=== PATIENT | female | born 1995 | race Caucasian/White ===

== ENCOUNTER → 2020-06-05 12:02 | Outpatient (BNVA) | payer BC, SELFPAY | PROVIDERS: PCP Internal Medicine; Referring Provider Internal Medicine; Visit Provider Advanced Practice Midwife | DX: Z76.89 Persons encountering health services in other specified circumstances (principal) ==

== ENCOUNTER → 2020-07-03 10:01 | Outpatient (BNVA) | payer BC, SELFPAY | PROVIDERS: PCP Internal Medicine; Visit Provider Advanced Practice Midwife | DX: Z30.46 Encounter for surveillance of implantable subdermal contraceptive (principal) | CPT/HCPCS: 11982 ==

== ENCOUNTER 2020-07-09 10:01 | Outpatient (REF) | payer BC, SELFPAY ==
[2020-07-10 09:49] LABS: CT PCR NOT DETECTED (Not Detect.); NG PCR NOT DETECTED (Not Detect.)
[2020-07-15 16:42] LABS: HPV 16 RNA NOT DETECTED (NOT DETECTED); HPV mRNA E6/E7 rflx Detected (Not Detected)
== END 2020-07-09 10:02 | disposition home or self-care (01) ==
LOC: HO.LAB 10:01
PROVIDERS: PCP Internal Medicine; Visit Provider Advanced Practice Midwife
DX: Z01.419 Encounter for gynecological examination (general) (routine) without abnormal findings (principal); Z20.2 Contact with and (suspected) exposure to infections with a predominantly sexual mode of transmission
CPT/HCPCS: 87491; 87591; 87624; 87625; 88141; 88142

== ENCOUNTER 2020-11-11 13:24 | Outpatient (REF) | payer BC, SELFPAY | END 2020-11-11 13:25 | disposition home or self-care (01) | LOC: HO.LAB 13:24 | PROVIDERS: Visit Provider Internal Medicine | DX: Z20.822 Contact with and (suspected) exposure to COVID-19 (principal) | CPT/HCPCS: 36415; C9803; U0003; U0005 ==

== ENCOUNTER 2021-04-16 17:34 | Emergency (ER) | payer OTHER, BC, SELFPAY ==
[2021-04-16 17:46] VITALS: BP 126/80; PULSE 80
[2021-04-16 17:59] VITALS: BP 120/74; PULSE 140; RESP 16; O2SAT 98; BMI 27.3
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
[2021-04-16] MEDS: Cyclobenzaprine HCl 10 MG TABLET 5 MG PO (20:06)
[2021-04-16] MEDS: Ibuprofen 600 MG TABLET PO (20:06)
== END 2021-04-16 20:20 | disposition home or self-care (01) ==
PROVIDERS: Emergency Provider Emergency Medicine; PCP Internal Medicine
DX: Z04.1 Encounter for examination and observation following transport accident (principal); M54.6 Pain in thoracic spine
CPT/HCPCS: 99283

== ENCOUNTER 2022-04-19 14:01 | Outpatient (REF) | payer OTHER, SELFPAY ==
[2022-04-21 08:32] LABS: Follicle Stimulating Hormone 4.1 mIU/mL; Prolactin 13.1 ng/mL
== END 2022-04-19 14:02 | disposition home or self-care (01) ==
LOC: HO.LAB 14:01
PROVIDERS: PCP Internal Medicine; Visit Provider Advanced Practice Midwife
DX: Z01.419 Encounter for gynecological examination (general) (routine) without abnormal findings (principal); N92.1 Excessive and frequent menstruation with irregular cycle; R23.2 Flushing
CPT/HCPCS: 36415; 83001; 84146; 84443; 88142

== ENCOUNTER 2022-05-20 16:00 | Outpatient (REF) | payer OTHER, SELFPAY ==
[2022-05-21 06:05] LABS: CT PCR NOT DETECTED (Not Detect.); NG PCR NOT DETECTED (Not Detect.)
[2022-05-21 14:22] LABS: BV Int Neg Control Negative (Negative); BV Int Pos Control Positive (Positive)
== END 2022-05-20 16:01 | disposition home or self-care (01) ==
LOC: HO.LNP 16:00
PROVIDERS: Visit Provider Advanced Practice Midwife
DX: Z11.3 Encounter for screening for infections with a predominantly sexual mode of transmission (principal); Z20.2 Contact with and (suspected) exposure to infections with a predominantly sexual mode of transmission
CPT/HCPCS: 87480; 87491; 87510; 87591; 87660

== ENCOUNTER 2022-07-18 08:38 | Emergency (ER) | payer OTHER, SELFPAY ==
--- NOTE | ~2022-07-18 | XR_ITS ---
EXAMINATION: XR HAND, RIGHT CLINICAL INFORMATION: Right hand swelling. COMPARISON: None TECHNIQUE: PA, lateral, and oblique views of the right hand. FINDINGS: The bones and soft tissues are normal. No fracture. Alignment is anatomic. Joint spaces are maintained. No erosions or soft tissue calcifications. XR/XR hand RT 2V IMPRESSION: Unremarkable right hand.
[2022-07-18 09:25] VITALS: BP 125/75; PULSE 80; RESP 16; TEMP 36.3; O2SAT 98; BMI 29.9
--- NOTE | 2022-07-18 11:00 | ED_ITS ---
HPI - General Adult General Chief complaint: Extremity Problem Stated complaint: R arm numbness/hand is cold Time Seen by Provider: 07/18/22 09:59 Source: patient Mode of arrival: ambulatory Limitations: no limitations History of Present Illness HPI narrative: 26-year-old female with no significant past medical history presents to the emergency department today, with her sister, with bilateral arm numbness (rt > lt) and sensation of a cold right hand. She reports she woke this morning feeling decreased sensation in bilateral arms with right greater than left and denies any trauma to her upper extremities. She denies any upper extremity pain or difficulty in range of motion. 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 She denies any use oral control. She denies any fever, chills, chest pain, shortness of breath, diarrhea, constipation. She denies any recent illness or known sick contacts. Onset (ago): hour(s) Location: left, right and upper extremity Radiation: non-radiation Associated symptoms: denies other symptoms Treatments prior to arrival: none Related Data Previous Rx's Medication Instructions Recorded fluconazole 150 mg tablet 150 mg PO ONCE PRN personal 1 day 05/20/22 (Diflucan) #2 tabs metronidazole 0.75 % (37.5 mg/5 1 appful vaginal BEDTIME 5 days 06/09/22 gram) vaginal gel #70 grams Allergies Allergy/AdvReac Type Severity Reaction Status Date / Time No Known Allergies Allergy Verified 05/20/22 15:50 Review of Systems Review of Systems: Yes all other systems are reviewed and are negative Constitutional: Constitutional: Reports no additional constitutional compla ints, Denies chills, Denies fatigue, Denies fever(s) and Denies headache(s) Eyes: Eyes: Reports no additional eye complaints and Denies change in vision ENT: Reports system reviewed and no additional complaints, except as documented, Reports Normal hearing present, Denies headache(s), Denies nasal congestion, Denies disequilibrium and Denies sore throat Cardiovascular: Cardiovascular: Reports no additional cardiovascular complaints, Denies chest pain, Denies Epigastric Pain and Denies dyspnea Respiratory: Respiratory: Reports no additional respiratory complaints, Denies chest congestion, Denies cough and Denies dyspnea Gastrointestinal: Gastrointestinal: Reports no additional gastrointestinal complaints, Denies abdominal pain and Denies change in stool character Genitourinary: Genitourinary: Reports no additional female genitourinary complaints Musculoskeletal: Musculoskeletal: Reports no additional musculoskeletal complaints, Denies deformity, Reports numbness and Reports tingling Integumentary/Breasts: Skin/Breast: Reports system reviewed and no additional complaints, except as docu, Denies lesions, Denies erythema, Denies rash and Denies sores Neurologic: Reports system reviewed and no additional complaints, except as documented, Reports Normal hearing present, Denies headache(s), Reports numbness, Reports tingling, Reports paresthesias and Denies disequilibrium Psychiatric: Psychiatric: Reports no additional psychiatric complaints, Denies anxiety and Denies depression Endocrine: Endocrine: Reports no additional endocrine complaints and Denies fatigue PMFSH Past Medical History Attestation statement: The following information was validated with the patient. Source: old records reviewed and obtained from family Surgical History Hx of hernia repair Family History Family History Mother Ovarian cancer Other No history of cancer Social History Social History Alcohol intake: never Sexual orientation: Straight/Heterosexual Gender identity: Female Physical Exam ED Vital Signs: Vital Signs - 24 hr 07/18/22 09:25 Temperature 97.3 F Pulse Rate 80 Respiratory Rate 16 Blood Pressure 125/75 Pulse Oximetry 98 Oxygen Delivery Method Room Air BMI result Body Mass Index 29.9 Const General: cooperative, no acute distress, alert and awake Nutritional Appearance: well nourished Orientation/consciousness: patient oriented x3 Limitations: no limitations HENID Head: Yes normal to inspection and Yes atraumatic Ears: hearing grossly normal bilaterally and external ears normal General nose exam: Normal external nose present Face and sinus: Yes normal facial exam Mouth: Normal oral and palatal mucosa present Eyes General: appearance normal, both eyes and all related structures Alignment and Position: alignment normal Periorbital: periorbital findings normal Eyelids: Yes eyelids normal Conjunctivae: conjunctivae normal Sclerae: sclerae normal Pupils: Equal, round and reactive pupils present EOM: EOMs intact bilaterally Neck Neck: Yes normal visual inspection and Yes full ROM Chest Chest palpation & inspection: normal inspection of the chest Resp Effort & Inspection: normal respiratory effort and able to speak in complete sentences Auscultation: clear to auscultation bilaterally Cardio Rate: regular rate Rhythm: regular rhythm Skin General skin exam: no rashes or lesions noted Neuro General: patient oriented x3, gait normal, moves all extremities and Normal light touch and pain sensation (bilateral upper extremities) Cranial nerves: Yes Equal, round and reactive pupils present and Yes Normal hearing present Cognition (Neuro): normal cognition Gait exam (Neuro): Normal gait present Motor exam (neuro): 5/5 motor strength present throughout Sensory Exam: Normal double simultaneous stimulation for sensation Extrem General: Yes normal to inspection, Yes full ROM, Yes capillary refill normal and Yes normal gait Right upper extremity: normal to inspection, full ROM and normal capillary refill; no cyanosis and no edema Left upper extremity: normal to inspection, full ROM and normal capillary refill; no cyanosis and no edema Psych Appearance: grossly normal Mental Status: mental status grossly normal Speech and movement: Normal speech and movement present Affect: normal affect Attitude: cooperative Thought process: Normal thought process present Thought content: Normal thought content present Insight: Good insight present (Psych) Judgement: Good judgement present (Psych) Medical Decision Making MDM Narrative Medical decision making narrative: 26-year-old female presented to the emergency department bilateral arm weakness. 2+ radial and ulnar pulses. He moves upper extremities symmetrically with good strength. Postive Phalen's test with worsening of paresthesia. Negative Tinel sign. Physical exam discussed with patient with no unanswered questions. Low suspicion for thrombosis or infection based on history and exam. Recommended to use [id number] NSAIDs such as ibuprofen or naproxen as directed on packaging. Recommended to wear wrist splint during the day and at night for comfort. Educated to return to the emergency department for increasing numbness, changes in gait, changes in vision, or any other emergent symptom that may concern you. Recommended to follow-up with orthopedics or hand specialist. Follow-up with your primary care provider for further management. Discharge Plan Discharge Clinical Impression: Numbness Patient Disposition: Home, Self-Care Instructions: Paresthesia (ED) Additional Instructions: Recommended to use [id number] NSAIDs such as ibuprofen or naproxen as directed on packaging. Wear wrist splint during the day and at night for comfort. Educated to return to the emergency department for increasing numbness, changes in gait, changes in vision, or any other emergent symptom that may concern you. Recommended to follow-up with orthopedics or hand specialty. Follow-up with your primary care provider. Prescriptions: No Action metronidazole 0.75 % (37.5mg/5 gram) gel 1 appful vaginal BEDTIME 5 Days Qty: 70 0RF fluconazole [Diflucan] 150 mg tablet 150 mg PO ONCE PRN (Reason: personal) 1 Days Qty: 2 1RF Rx Instructions: may repeat dose in one week if symptoms do not resolve Referrals: Micky Cervantes MD [Primary Care Provider] - Stand Alone Forms: Work/School Release Interventions: ED Discharge Assessment Last Done: 07/18/22 11:01 Discharge Date/Time: 07/18/22 11:04
== END 2022-07-18 11:04 | disposition home or self-care (01) ==
PROVIDERS: Emergency Provider Emergency Medicine; PCP Internal Medicine
DX: R20.0 Anesthesia of skin (principal)
CPT/HCPCS: 73120; 99283

== ENCOUNTER 2022-07-22 14:30 | Outpatient (REF) | payer OTHER, SELFPAY ==
[2022-07-23 11:57] LABS: BV Int Neg Control Negative (Negative); BV Int Pos Control Positive (Positive)
== END 2022-07-22 14:31 | disposition home or self-care (01) ==
LOC: HO.LNP 14:30
PROVIDERS: Visit Provider Internal Medicine
DX: N89.8 Other specified noninflammatory disorders of vagina (principal)
CPT/HCPCS: 87480; 87510; 87660

== ENCOUNTER 2023-05-12 15:34 | Outpatient (REF) | payer OTHER, SELFPAY ==
[2023-05-12 18:49] LABS: CT PCR NOT DETECTED (Not Detect.); NG PCR NOT DETECTED (Not Detect.)
== END 2023-05-12 15:35 | disposition home or self-care (01) ==
LOC: HO.LNP 15:34
PROVIDERS: PCP Internal Medicine; Visit Provider Advanced Practice Midwife
DX: Z20.2 Contact with and (suspected) exposure to infections with a predominantly sexual mode of transmission (principal)
CPT/HCPCS: 0353U

== ENCOUNTER 2023-05-12 15:34 | Outpatient (AMB) | payer OTHER, SELFPAY ==
[2023-05-12 15:51] VITALS: BP 112/72; BMI 29.5
--- NOTE | 2023-05-12 15:51 | A.OFFVIS_ITS ---
Intake Vital Signs 05/12/23 15:51 Height 5 ft Weight 151 lb BMI 29.5 BP 112/72 Intake Visit Reasons: Annual Intake Note: The patient agreed to use of a medical logistics specialist during this encounter. Scribed for BHARTI Hauser by Galina Erazo medical logistics specialist, on 05/12/2023 at 4:27 pm EST. Digital Project Coordinator Required: No Information Interpreted: non-clinical & clinical Advertisement Distributor: Advertisement Distributor Present (Mey) Allergies No Known Allergies Allergy (Verified 05/12/23 15:55) Is last menstrual period known: Yes Last menstrual period: 04/19/23 Post menopausal: No HPI HPI Comments History of Present Illness Details She is a premenopausal woman presenting for annual exam. Doing well with no member of congress concerns. She admits to eating healthy and tries to stay active with exercise. Currently sexually active. Using condoms, not interested in BC. Admits vaginal itching and irritation in the past but used Vagisil cream which helped it resolve. STD screening offered; she declines. Denies family hx of breast and ovarian cancer. Last pap smear 04/21/22. PFSH Surgical History Hx of hernia repair Family History Mother Ovarian cancer Other No history of cancer Social History Alcohol intake: current Alcohol intake frequency: holidays/special occasions only Patient Tobacco Use Status: Never used Tobacco e-Cigarette/Vaping Use: Never Used Substance Use Type: Marijuana service: No Current occupational exposures/hazards: No Sexual orientation: Straight/Heterosexual Gender identity: Female Cognitive needs: No Hearing needs: No Vision needs: No Female Reproductive History Menstrual Age of Menarche: 12 Duration of menses: 3-5 days Date of last menstrual period: 04/19/23 control method: none and condoms Total pregnancies: 0 Date of last pap smear: 04/21/22 (negative) History of abnormal pap smear: Yes (2020 +HPV) Physical Exam Vital Signs: Last Vital Signs BP 112/72 05/12/23 15:51 BMI result Body Mass Index 29.5 Const General: cooperative, healthy appearing, no acute distress, well developed and alert Orientation/consciousness: patient oriented x3 HEENT Head: Yes normal to inspection Eyes General: appearance normal, both eyes and all related structures Neck Neck: Yes normal visual inspection Thyroid: Thyroid normal Chest Chest palpation & inspection: normal inspection of the chest Breast/axilla inspection: normal inspection of the breasts (no puckering, dimpling, peau de orange, retraction, discharge, masses) Breast/axilla palpation: normal palpation of the breasts Resp Effort & Inspection: normal respiratory effort GI Inspection: Yes normal to inspection Palpation (GI): Soft to palpation (to palpation) Rectal Exam - Female: deferred General: Yes bladder normal to inspection External Female Exam: normal external appearance and normal appearance of the urethra Speculum Exam - Vagina: normal appearance of the vagina, normal palpation and normal vaginal discharge Speculum Exam - Cervix: normal appearance of the cervix and normal palpation Bimanual exam- vagina & uterus: normal palpation and normal palpation Bimanual Exam- Adnexa, other: normal adnexae and no masses Skin General skin exam: no rashes or lesions noted Neuro General: patient oriented x3 Cognition (Neuro): normal cognition Extrem General: Yes normal to inspection Psych Attitude: cooperative Thought process: Normal thought process present Assessment & Plan Assessment & Plan (1) Encounter for well woman exam: Code(s): Z01.419 - Encounter for gynecological examination (general) (routine) without abnormal findings Plan: Discussed: Current recommendations for pap smears per ASCCP guidelines. Breast awareness and periodic self breast exams. Encouraged yearly mammograms. Maintaining a healthy lifestyle including a well balanced diet including Calcium and Vitamin D and routine exercise. All of her questions and concerns were addressed to the best of my ability. RTO in 1 year for AG. (2) Potential exposure to STD: Code(s): Z20.2 - Contact with and (suspected) exposure to infections with a predominantly sexual mode of transmission Plan: GC/CT panel done today. Await results and treat accordingly. Orders: Orders CT NG by PCR Today Z01.419 - Encounter for gynecological examination (general) (routine) without abnormal findings Coding Level of Care Code Est Pt Prev Care 18-39y(14614) Diagnoses Encounter for well woman exam Z01.419 Potential exposure to STD Z20.2
== END 2023-05-12 16:21 | disposition home or self-care (01) ==
PROVIDERS: PCP Internal Medicine; Visit Provider Advanced Practice Midwife
DX: Z01.419 Encounter for gynecological examination (general) (routine) without abnormal findings (principal); Z20.2 Contact with and (suspected) exposure to infections with a predominantly sexual mode of transmission
CPT/HCPCS: 99395

== ENCOUNTER 2023-10-18 09:12 | Outpatient (REF) | payer OTHER, SELFPAY ==
[2023-10-19 06:11] LABS: CT PCR DETECTED (Not Detect.); NG PCR NOT DETECTED (Not Detect.)
[2023-10-19 15:43] LABS: BV Int Neg Control Negative (Negative); BV Int Pos Control Positive (Positive)
== END 2023-10-18 09:13 | disposition home or self-care (01) ==
LOC: HO.LAB 09:12
PROVIDERS: PCP Internal Medicine; Visit Provider Advanced Practice Midwife
DX: Z20.2 Contact with and (suspected) exposure to infections with a predominantly sexual mode of transmission (principal); N39.0 Urinary tract infection, site not specified; N94.10 Unspecified dyspareunia
CPT/HCPCS: 0353U; 87480; 87510; 87660

== ENCOUNTER 2023-10-18 09:12 | Outpatient (AMB) | payer OTHER, SELFPAY ==
--- NOTE | 2023-10-18 09:21 | A.OFFVIS_ITS ---
Intake Vital Signs 10/18/23 09:22 Height 5 ft Weight 151 lb BMI 29.5 BP 122/70 Intake Visit Reasons: pain after intercourse Bunch Trimmer Mold Required: No Information Interpreted: clinical only Awning Frame Maker: Awning Frame Maker Present Allergies No Known Allergies Allergy (Verified 10/18/23 09:22) Medication List - Last Reconciled 10/18/23 by Vicky Hanks CNM ibuprofen 400 mg PO ONCE Is last menstrual period known: Yes Last menstrual period: 09/22/23 Do you need a note to return to daycare/school/sports/work: No HPI pain after intercourse HPI Details And is here because 4 days ago she experienced I really bad strong pain and severe cramping after intercourse when she had just finished and she broke out in a sweat and started feeling faint faint and had chills and lots of cramping she has frequent UTIs and often she just goes to [facility] and they treat her with small pack of about 8 (question 6 pills of antibiotic). She has been told that sometimes she needs to pee more often and that would help prevent UTIs. She normally sees Caroline Chi up but 501 she uses condoms for control if she got for from 1 of the occasions when they do not use condoms she would have a baby. PFSH Surgical History Hx of hernia repair Family History Mother Ovarian cancer Other No history of cancer Social History Alcohol intake: current Alcohol intake frequency: holidays/special occasions only Patient Tobacco Use Status: Never used Tobacco e-Cigarette/Vaping Use: Never Used Substance Use Type: Marijuana service: No Current occupational exposures/hazards: No Sexual orientation: Straight/Heterosexual Gender identity: Female Cognitive needs: No Hearing needs: No Vision needs: No Female Reproductive History Menstrual Age of Menarche: 12 Duration of menses: 6-7 days Date of last menstrual period: 09/22/23 control method: condoms Total pregnancies: 0 Date of last pap smear: 04/21/22 (negative,previous pap neg hpv +) Physical Exam Vital Signs: Last Vital Signs BP 122/70 10/18/23 09:22 BMI result Body Mass Index 29.5 Other: Vagina pink and moist cervix nulliparous pink smooth normal appearing scant white discharge. Cervix and uterus are midposition bladder does feel ever so slightly full and that is where she identifies the cramping that she had and that she has on palpation. Adnexa nontender good tone with Kegel External Female Exam: normal external appearance Speculum Exam - Vagina: normal appearance of the vagina and normal vaginal discharge Speculum Exam - Cervix: normal appearance of the cervix Bimanual exam- vagina & uterus: normal bimanual exam, uterine size normal, consistency normal, uterine mobility normal, uterine shape normal and non-tender Bimanual Exam- Adnexa, other: normal adnexae, no masses and No adnexal tenderness Assessment & Plan Assessment & Plan (1) Frequent UTI: Code(s): N39.0 - Urinary tract infection, site not specified (2) Dyspareunia in female: Comment: 4d ago, vagal response.... Code(s): N94.10 - Unspecified dyspareunia Plan Cultures done and will send patient to lab for a clean-catch UA DISTANCE EDUCATION COORDINATOR. Discussed the possibility of incomplete emptying of her bladder as well as irritation to use the urethra during intercourse contributing to both the cramping and her frequent UTIs. Also discussed that her description of what happened sounds very likely that she had some vagal stimulation from the severe cramping and it can happen from cervical stimulation or any other internal pain and cramping with internal organs including bladder or intestines. And described other situations in life when it occurs. Will send patient for a clean-catch UA C&S in the lab she is on the portal and so she may check on the weekend but if she wants to know if there is anything going on sooner she can call for Monday she does not really thinks she has a UTI at the moment but this will serve at least as of test of cure as well. Discussed complete bladder emptying as much as possible and how it sets as up for urinary tract infections as well Orders: Orders Urine Culture Today N39.0 - Urinary tract infection, site not specified, N94.10 - Unspecified dyspareunia Coding Level of Care Code Est Pt Level 3 (07337) Diagnoses Frequent UTI N39.0 Dyspareunia in female N94.10
[2023-10-18 09:22] VITALS: BP 122/70; BMI 29.5
== END 2023-10-18 10:06 | disposition home or self-care (01) ==
LOC: HO.HWSM 09:12
PROVIDERS: PCP Internal Medicine; Visit Provider Advanced Practice Midwife
DX: N39.0 Urinary tract infection, site not specified (principal); N94.10 Unspecified dyspareunia
CPT/HCPCS: 99213

== ENCOUNTER 2023-10-18 10:09 | Outpatient (REF) | payer OTHER, SELFPAY | END 2023-10-18 10:10 | disposition home or self-care (01) | LOC: HO.HHCL 10:09 | PROVIDERS: Visit Provider Advanced Practice Midwife | DX: N39.0 Urinary tract infection, site not specified (principal); N94.10 Unspecified dyspareunia | CPT/HCPCS: 87086 ==

== ENCOUNTER 2024-03-01 14:47 | Outpatient (AMB) | payer OTHER, SELFPAY ==
[2024-03-01 15:14] VITALS: BP 106/68; BMI 28.9
--- NOTE | 2024-03-01 15:14 | A.OFFVIS_ITS ---
Vital Signs 03/01/24 15:14 Height 5 ft Weight 148 lb BMI 28.9 BP 106/68 Intake Visit Reasons: [facility] Attendant Required: No Veterinary Hospital Attendant Services: Veterinary Hospital Attendant Present Information Interpreted: clinical only Manager Process Excellence: Manager Process Excellence Present Allergies No Known Allergies Allergy (Verified 03/01/24 15:15) Medication List - Last Reconciled 03/01/24 by Vicky Hanks CNM ibuprofen 400 mg PO ONCE Is last menstrual period known: Yes Last menstrual period: 02/20/24 Do you need a note to return to daycare/school/sports/work: No HPI HPI [place]: Details: Patient is here for test of cure for chlamydia that she had diagnosed at the 10/18/2023 visit she and her partner took the medicine and they waited a while before having unprotected sex she has not worried about other STDs and declines blood work for HIV or hepatitis-B or C syphilis today. She could not get in for the test of cure visit sooner so she is here today she has not having any other issues though she just shaved the other day and feels like she might have a rash where she shaved in her groin. PFSH Surgical History Hx of hernia repair Family History Mother Ovarian cancer Other No history of cancer Social History Alcohol intake: current Alcohol intake frequency: holidays/special occasions only Patient Tobacco Use Status: Never used Tobacco e-Cigarette/Vaping Use: Never Used Substance Use Type: Marijuana service: No Current occupational exposures/hazards: No Sexual orientation: Straight/Heterosexual Gender identity: Female Cognitive needs: No Hearing needs: No Vision needs: No Female Reproductive History Menstrual Age of Menarche: 12 Date of last menstrual period: 02/20/24 control method: none Total pregnancies: 0 Date of last pap smear: 04/21/22 (negative) Physical Exam Vital Signs: Last Vital Signs BP 106/68 03/01/24 15:14 BMI result Body Mass Index 28.9 Other: External vulva consistent with external tinea and exposure to moisture as in wearing bathing suit for long periods of time. Vagina pink and moist cervix nulliparous pink smooth moist with normal appearing discharge cultures taken for test of cure etc. Results Reviewed Results Reviewed: Name: Alba Zurita Age/Sex: 27/F : 1995 Unit#: [id number] Attend Dr: LatonyaVicky JHA Re10/18/23 Status: DEP REF Location: .LAB Disch: SPEC : [id number] COURTNEY: 10/18/23-UNK STATUS: COMP REQ : [id number] RECD: 10/18/[address]: LatonyaVicky JHA COMP: 10/19/23 ENTERED: 10/18/[address]: Micky Cervantes MD ORDERED: CT NG by PCR QUERIES: CT NG Source: Vaginal Test Result Flag Reference CT PCR DETECTED A Not Detect. Detected results may be observed after successful antibiotic treatment due to target nucleic acids from residual non-viable chlamydia. As with many diagnostic tests, results from the Xpert CT/NG assay should be interpreted in conjunction with other laboratory and clinical data available to the clinician. Xpert CT/NG performance has not been evaluated in patients less than 14 years of age. The assay should not be used for the evaluation of suspected sexual abuse or for other medico-legal indications. Additional testing is recommended in any circumstance when false positive or false negative results could lead to adverse medical, social or psychological consequences. These results must be reported by the ordering clinician or clinical facility to the [facility] as required by state law. NG PCR NOT DETECTED Not Detect. A not detected test result does not exclude the possibility of infection because test results can be affected by improper specimen collection, concurrent antibiotic therapy, or the number of organisms in the specimen which may be below the sensitivity of the test. As with many diagnostic tests, results from the Xpert CT/NG assay should be interpreted in conjunction with other laboratory and clinical data available to the clinician. Xpert CT/NG performance has not been evaluated in patients less than 14 years of age. The assay should not be used for the evaluation of suspected sexual abuse or for other medico-legal indications. Additional testing is recommended in any circumstance when false positive or false negative results could lead to adverse medical, social or psychological consequences. END OF REPORT Assessment & Plan Assessment & Plan (1) Chlamydia infection: Comment: Needs Rx and partner Rx, consider risk of .../treated in September, test of cure 03/01/2024. Code(s): A74.9 - Chlamydial infection, unspecified Category: Medical (2) Yeast infection involving the vagina and surrounding area: Comment: Teaching done we will prescribe Monistat for p.r.n. use. Code(s): B37.31 - Acute candidiasis of vulva and vagina Category: Medical Plan Offered testing for STIs with blood work she declines. She is using condoms currently with her partner. She was hanging out with her friends and backyard pool in a bathing suit for long periods of time gather evening and is planning it again this weekend. Discussed allowing air to her vulva when it is possible. Offered prescription for Monistat in case she needs it. Test of cure done she has her annual exam set up.. Medications: New miconazole nitrate 2% (Miconazole-7) 1 appful vaginal BEDTIME 7 days 45 grams 1RF Coding Level of Care Code Est Pt Level 3 (63440) Diagnoses Chlamydia infection A74.9 Yeast infection involving the vagina and surrounding area B37.31
== END 2024-03-01 15:54 | disposition home or self-care (01) ==
PROVIDERS: PCP Internal Medicine; Visit Provider Advanced Practice Midwife
DX: A74.9 Chlamydial infection, unspecified (principal); B37.31 Acute candidiasis of vulva and vagina
CPT/HCPCS: 99213

== ENCOUNTER 2024-03-01 14:47 | Outpatient (REF) | payer OTHER, SELFPAY ==
[2024-03-05 06:03] LABS: CT PCR NOT DETECTED (Not Detect.); NG PCR NOT DETECTED (Not Detect.)
[2024-03-05 10:49] LABS: Bacterial Vaginosis PCR NEGATIVE (Negative); Candida Group PCR NOT DETECTED (Not Detect); Candida glab krusei PCR NOT DETECTED (Not Detect); Trichomonas vaginalis PCR NOT DETECTED (Not Detect)
== END 2024-03-01 14:48 | disposition home or self-care (01) ==
LOC: HO.LAB 14:47
PROVIDERS: PCP Internal Medicine; Visit Provider Advanced Practice Midwife
DX: N89.8 Other specified noninflammatory disorders of vagina (principal); Z20.2 Contact with and (suspected) exposure to infections with a predominantly sexual mode of transmission; A74.9 Chlamydial infection, unspecified; B37.31 Acute candidiasis of vulva and vagina
CPT/HCPCS: 0352U; 87491; 87591

== ENCOUNTER 2025-01-31 12:15 | Outpatient (AMB) | payer OTHER, SELFPAY ==
--- NOTE | 2025-01-31 12:21 | A.OFFPC_ITS ---
Vital Signs 01/31/25 12:36 Height 5 ft Weight 161 lb 2 oz BMI 31.5 BP 104/64 Blood Pressure Location Rt brachial Position Sitting Pulse 75 Pulse Source Pulse Oximeter Temp 98.0 F Temp Source Oral Pulse Oximetry (%) 100 Oxygen Delivery Method Room Air Intake Visit Reasons: weight and digestive system concerns Allergies No Known Allergies Allergy (Verified 01/31/25 12:21) Medication List - Last Reconciled 01/31/25 by Micky Cervantes MD No Known Home Meds Tobacco use date assessed: 01/31/25 Dental Screening Dental Screen Date: 01/31/25 Did you have a dental visit in the last 12 months?: No Did you have a dental problem in the last 6 months where you did not have access to dental care?: No Was dental information given to patient?: Patient has dentist HPI weight and digestive system concerns HPI Details History - The patient is a 29-year-old female pr esenting with a history of abdominal bloating and changes in bowel habits. - The patient reports experiencing bloat ing and alternating episodes of constipation and diarrhea for over three years. - She describes a sensation of bloating and constipation lasting up to three days, followed by diarrhea and non-solid stools. - While attempting a bowel movement, she experienced lightheadedness and a near fainting episode, attributed to straining. - No reported incidence of abdominal certified master safecracker mping or hemorrhoids. - There is reported exacerbation of symp toms with certain food items, particularly pork, rice, and dairy, leading to an increase in bloating. - The patient has tried various self-aundrea atment methods, including probiotics and olqt-eto-zvufweg castor oil, without relief. - No presence of blood in stools, fever, or vomiting. Medications: - Probiotics for bowel regulation, not s pecified Social History: - Avoids certain foods (pork, rice, and dairy) due to worsening of symptoms Family History: - Mother has a history of a digestive is ameena requiring a colonoscopy for blockage Problem List - Abdominal bloating - Alternating constipation and diarrhea Patient Instructions - Begin taking the prescribed fiber supp lement as directed. MiraLax in full glass of water - Maintain a food diary, noting any wors ening symptoms and correlating them with food intake. - Educate yourself about irritable bowel syndrome (IBS). - Monitor for any changes and follow up after two to three weeks for reassessment. Review of Systems - General: No fever no chills - Neurological: No headaches no dizziness - Ear nose throat: No sore throat no hearing difficulty no ear pain - Cardiovascular: No syncope, no chest pain, no palpitations - Gastrointestinal: No nausea vomiting - Endocrine: No polyuria polydipsia no heat intolerance - Genitourinary: No dysuria , no blood in urine Physical Exam General: No acute distress HEENT: No acute findings Neck: Supple Respiratory system: Able to talk in full sentences, no audible wheeze Cardiovascular: S1-S2 regular in rate and rhythm Gastrointestinal: Abdomen is benign, no serious issues noted Extremities: No new findings COLLEGE HIRE: Alert awake oriented x3 motor sensory intact Skin: Normal turgor PFSH Surgical History Hx of hernia repair Family History Mother Ovarian cancer Other No history of cancer Social History Alcohol intake: current Alcohol intake frequency: holidays/special occasions only Patient Tobacco Use Status: Never used Tobacco e-Cigarette/Vaping Use: Never Used Substance Use Type: Marijuana service: No Current occupational exposures/hazards: No Sexual orientation: Straight/Heterosexual Gender identity: Female Cognitive needs: No Hearing needs: No Vision needs: No Female Reproductive History Menstrual Age of Menarche: 12 Questionnaire PHQ-9 Over the last 2 weeks, how often have you been bothered by any of the following problems? 1. Little interest or pleasure in doing things: not at all 2. Feeling down, depressed, or hopeless: several days 3. Trouble falling or staying asleep, or sleeping too much: several days 4. Feeling tired or having little energy: nearly every day 5. Poor appetite or overeating: not at all 6. Feeling bad about yourself - or that you are a failure or have let yourself or your family down: not at all 7. Trouble concentrating on things, such as reading the newspaper or watching television: nearly every day 8. Moving or speaking so slowly that other people could have noticed. Or the opposite - being so fidgety or restless that you have been moving around a lot more than usual: more than half the days 9. Thoughts that you would be better off or of hurting yourself in some way: not at all Total score: 10 Depression Screening Interpretation: Positive Depression Screening Follow-up: Community Mental Health Worker F/U and Follow-up Visit Requested Depression Screening Done: Yes 22266 - PHQ-9 Billing: Yes Source: Developed by Drs. Yadiel Hill, Debbie Carmona, Mitch Stevenson and colleagues, with an educational karen from [employer]. Thrive Questionnaire Date Thrive assessed: 01/31/25 I am a: Patient What is your living situation today?: I have a steady place to live Within the past 12 months, did the food you bought not last and you didn't have the money to get more?: Sometimes True Within the past 12 months, did you worry whether your food would run out before you got money to buy more?: Sometimes True Do you have trouble paying for medicines?: I choose not to answer this question Do you have trouble getting transportation to medical appointments?: No Do you have trouble paying your heating and electricity bill?: No Do you have trouble taking care of your child, family member or friend?: No Do you have trouble with day-to-day activities such as bathing, preparing meals, shopping, managing finances, etc.?: No Are you currently unemployed and looking for a job?: No Are you interested in more education?: No Please select the resources that you would like help with: None Currently or been in a relationship where the following occur: No concerns reported THRIVE Score: 2 AUDIT C Alcohol Use Questionnaire (AUDIT-C) 1. How often do you have a drink containing alcohol?: Monthly or less 2. How many drinks containing alcohol do you have on a typical day when you are drinking?: 1 or 2 3. How often do you have six or more drinks on one occasion?: Never Total Score: 1 ERINN-7 AMB Questionnaire ERINN-7 Date ERNIN - 7 assessed: 01/31/25 Feeling nervous, anxious, or on edge: 2 = More than half the days Not being able to stop or control worryin = Not at all Worrying too much about different things: 2 = More than half the days Trouble relaxin = More than half the days Being so restless that it is hard to sit still: 0 = Not at all Becoming easily annoyed or irritable: 2 = More than half the days Feeling afraid as if something awful might happen: 0 = Not at all Total ERINN-7 score (0-4 normal; 5-9 mild; 10-14 moderate; 15-21 severe): 8 Source: Developed by Drs. Yadiel Hill, Debbie Carmona, Mitch Stevenson and colleagues, with an educational karen from [employer]. ERINN-7 Assessment Billing ERINN-7 Assessment Tool: ERINN-7 Assessment 07607 Physical exam (Primary Care) Vital Signs: Last Vital Signs Temp 98.0 F 01/31/25 12:36 Pulse 75 01/31/25 12:36 BP 104/64 01/31/25 12:36 Pulse Ox 100 01/31/25 12:36 Oxygen Delivery Method Room Air 01/31/25 12:36 BMI result Body Mass Index 31.5 Tobacco/Smoking Status: Tobacco use Status Tobacco use date assessed 01/31/25 01/31/25 12:22 Patient Tobacco Use Status Never used Tobacco 01/31/25 12:22 e-Cigarette/Vaping Use Never Used 01/31/25 12:22 PHQ-9: PHQ-9 Score PHQ-9: Total score 10 01/31/25 12:54 Depression Screening Interpretation: Positive Depression Screening Follow-up: Community Mental Health Worker F/U and Follow-up Visit Requested Thrive Assessment: Date of Thrive Assessment Date Thrive assessed 01/31/25 01/31/25 12:22 Currently or been in a relationship where the following occur: No concerns reported Coding Level of Care Code Est Pt Level 3 (10423) Diagnoses Constipation by delayed colonic transit K59.01 Abdominal bloating R14.0 Positive depression screening Z13.31 Additional Codes ERINN-7 Assessment Billing - ERINN-7 Assessment Tool: ERINN-7 Assessment 36388 ([id number]) PHQ-9 - 04196 - PHQ-9 Billing: Yes ([id number]) Assessment & Plan Assessment & Plan (1) Constipation by delayed colonic transit: Code(s): K59.01 - Slow transit constipation Category: Medical (2) Abdominal bloating: Code(s): R14.0 - Abdominal distension (gaseous) Category: Medical (3) Positive depression screening: Code(s): Z13.31 - Encounter for screening for depression Category: Medical Plan History - The patient is a 29-year-old female presenting with a history of abdominal bloating and changes in bowel habits. - The patient reports experiencing bloating and alternating episodes of constipation and diarrhea for over three years. - She describes a sensation of bloating and constipation lasting up to three days, followed by diarrhea and non-solid stools. - While attempting a bowel movement, she experienced lightheadedness and a near fainting episode, attributed to straining. - No reported incidence of abdominal cramping or hemorrhoids. - There is reported exacerbation of symptoms with certain food items, particularly pork, rice, and dairy, leading to an increase in bloating. - The patient has tried various self-treatment methods, including probiotics and cxwm-nvo-xghqbdx castor oil, without relief. - No presence of blood in stools, fever, or vomiting. Medications: - Probiotics for bowel regulation, not specified Social History: - Avoids certain foods (pork, rice, and dairy) due to worsening of symptoms Family History: - Mother has a history of a digestive issue requiring a colonoscopy for blockage Problem List - Abdominal bloating - Alternating constipation and diarrhea Patient Instructions - Begin taking the prescribed fiber supplement as directed. MiraLax in full glass of water - Maintain a food diary, noting any worsening symptoms and correlating them with food intake. - Educate yourself about irritable bowel syndrome (IBS). - Monitor for any changes and follow up after two to three weeks for reassessment. Orders: Orders TSH reflex Free T4 Today K59.01 - Slow transit constipation, R14.0 - Abdominal distension (gaseous) Comprehensive [place]. Panel Fast Today K59.01 - Slow transit constipation, R14.0 - Abdominal distension (gaseous) Vitamin B12 Today K59.01 - Slow transit constipation, R14.0 - Abdominal distension (gaseous) Complete Blood Count Auto Diff Today K59.01 - Slow transit constipation, R14.0 - Abdominal distension (gaseous) Lipid Panel Today K59.01 - Slow transit constipation, R14.0 - Abdominal distension (gaseous) Vitamin D 25-OH (D2 and D3) Today K59.01 - Slow transit constipation, R14.0 - Abdominal distension (gaseous) Magnesium Today K59.01 - Slow transit constipation, R14.0 - Abdominal distension (gaseous) Medications: New polyethylene glycol 3350 (Miralax) 17 grams PO DAILY 1,530 grams 0RF 90 days
[2025-01-31 12:36] VITALS: BP 104/64; PULSE 75; TEMP 36.7; O2SAT 100; BMI 31.5
--- OUTSIDE RECORDS SUMMARY | 2025-01-31 12:57 | XMS_ITS | Clinical Summary ---
Author Organization [facility] Address [address] [place] [address] Care Team Providers Care Welder Fitter Apprentice Name Role Phone Unavailable Primary Care Provider Unavailabl e Source Comments PLEASE NOTE, if this patient is a minor, it may be UNLAWFUL to discuss sensitive information that is contained in these records (such as FAMILY PLANNING, MENTAL HEALTH or SUBSTANCE ABUSE) with the minor patient's parent or other person without the patient's specific authorization.[facility] Immunizations Immunization Administration Dates Next Due Moderna COVID-19 Vaccine, re d cap blue label, 12+ Primary Series 09/10/2021 Social History Tobacco Use Types Packs/Day Years Used Date Smoking Tobacco: Never Assessed Comments Unknown Sex and Gender Information Value Date Recorded Sex Assigned at Not on file Legal Sex Female 1:17 PM PST Gender Identity Not on file Sexual Orientation Not on file Plan of Treatment Health Maintenance Due Date Last Done Comments Anxiety Screening 1995 HPV Screening 1995 Hepatitis C Screening 1995 Pap + HPV 1995 Tobacco Screening 1995 HIV Screening 2012 Relationship Safety Screening/Counseling 2012 Hypertension Screening (#1) 11/27/2015 Imm-DTaP/Tdap/Td (1 - Tdap) 2016 Imm-Hepatitis B (1 of 3 - 19 + 3-dose series) 2016 Cervical Cancer Screening 2018 Pap Smear 2018 [id number] ( season) 2024 09/10/2021, 02/24/2021, 01/27/2021 Imm-Influenza (#1) 2024 06/14/2021 Alcohol and Drug Screen 08/21/2024 Depression Annual Screen 08/21/2024 Cervical Ablation/Cold-Knife Conization Discontinued Cervical Cryotherapy Discontinued Colposcopy Discontinued Endometrial Biopsy Discontinued Excision/Leep Discontinued HPV Genotyping Discontinued Vaginal Pap Discontinued Vulvoscopy Discontinued Insurance COVID19 [facility]
== END 2025-01-31 12:55 | disposition home or self-care (01) ==
LOC: HO.HMCC 12:15
PROVIDERS: PCP Internal Medicine; Visit Provider Internal Medicine
DX: K59.01 Slow transit constipation (principal); R14.0 Abdominal distension (gaseous); Z13.31 Encounter for screening for depression

== ENCOUNTER → 2025-01-31 12:15 | Outpatient (BNVA) | payer OTHER, SELFPAY | PROVIDERS: PCP Internal Medicine; Visit Provider Internal Medicine | DX: K59.01 Slow transit constipation (principal); R14.0 Abdominal distension (gaseous); R19.7 Diarrhea, unspecified | CPT/HCPCS: 96127 ==

== ENCOUNTER 2025-02-01 09:35 | Outpatient (REF) | payer OTHER, SELFPAY ==
[2025-02-01 11:14] LABS: MANUAL DIFF FLAG NO
[2025-02-01 11:25] LABS: Basophils Percent Auto 0.3 % (0-2); Eosinophils Percent Auto 0.7 % (0-4); Hematocrit 41.5 % (37.0-47.0); Hemoglobin 14.3 g/dl (12.0-16.0); Imm Gran Abs Auto 0.02 X10*3/uL (0.00-0.03); Imm Gran Pct Auto 0.3 % (0.0-0.4); Lymphocytes Absolute Auto 2.3 X10*3/uL (1.2-4.9); Lymphocytes Percent Auto 39.2 % (20-40); Mean Corpuscular HGB Conc 34.5 g/dl (31.0-35.0); Mean Platelet Volume 9.8 fL (9.4-12.3); Monocytes Absolute Auto 0.6 X10*3/uL (0.1-1.2); Monocytes Percent Auto 9.3 % (2-11); Neutrophils Percent Auto 50.2 % (45-73); Platelet Count 361 X10*3/uL (160-400); Red Blood Count 4.61 X10*6/uL (4.20-5.50); Red Cell Distribution Width 12.6 % (11.0-16.0); White Blood Count 5.9 X10*3/uL (4.8-10.8)
[2025-02-01 12:00] LABS: Alanine Aminotransferase 45 U/L (0-31); Albumin Level 4.5 g/dL (3.5-5.0); Alkaline Phosphatase 58 U/L (39-117); Anion Gap 12 (12-20); Aspartate Amino Transferase 34 U/L (5-31); Bilirubin Total 1.3 mg/dL (0.0-1.0); Blood Urea Nitrogen 6 mg/dL (9-16); Calcium 9.5 mg/dL (8.4-10.2); Carbon Dioxide 25 mmol/L (22-29); Chloride 107 mmol/L (96-108); Cholesterol 178 mg/dL (<200); Estimated Glomerular Filt Rate > 60; Glucose Fasting 98 mg/dL (60-99); HDL Cholesterol 43 mg/dL (>40); LDL Cholesterol Calculated 116 mg/dL (<100); Magnesium 1.9 mg/dL (1.6-2.6); Potassium 4.1 mmol/L (3.3-5.1); Sodium 140 mmol/L (135-145); TSH reflex Free T4 1.41 uIU/mL (0.32-4.0); Total Protein 7.3 g/dL (6.5-8.0); Triglycerides 97 mg/dL (<150)
[2025-02-01 12:09] LABS: Vitamin B12 580 pg/mL (200-900)
[2025-02-06 15:39] LABS: Vitamin D 25-OH, D2 <4 ng/mL; Vitamin D 25-OH, D3 23 ng/mL; Vitamin D 25-OH, Total 23 ng/mL (30-100)
== END 2025-02-01 09:36 | disposition home or self-care (01) ==
LOC: HO.HMGCLDS 09:35
PROVIDERS: PCP Internal Medicine; Visit Provider Internal Medicine
DX: K59.01 Slow transit constipation (principal); R14.0 Abdominal distension (gaseous)
CPT/HCPCS: 36415; 80053; 80061; 82306; 82607; 83735; 84443; 85025

== ENCOUNTER 2025-02-06 08:34 | Outpatient (AMB) | payer OTHER, SELFPAY ==
--- OUTSIDE RECORDS SUMMARY | 2025-02-06 08:51 | XMS_ITS | Clinical Summary ---
Author Organization [facility] Address [address] [place] [address] Care Team Providers Care Cogeneration Operator Name Role Phone Unavailable Primary Care Provider [...] Cervical Cancer Screening 2018 Pap Smear 2018 [id number] ( season) 2024 09/10/2021, 02/24/2021, 01/27/2021 Imm-Influenza (#1) 2024 06/14/2021 Alcohol and Drug Screen 08/21/2024 Depression Annual Screen 08/21/2024 Cervical Ablation/Cold-Knife Conization Discontinued Cervical Cryotherapy Discontinued Colposcopy Discontinued Endometrial Biopsy Discontinued Excision/Leep Discontinued HPV Genotyping Discontinued Vaginal Pap Discontinued Vulvoscopy Discontinued Insurance COVID19 [facility] [place] [id number]
--- NOTE | 2025-02-06 09:01 | A.OFFPC_ITS ---
Intake Visit Reasons: lab review Allergies No Known Allergies Allergy (Verified 01/31/25 12:21) Medication List - Last Reconciled 02/06/25 by Micky Cervantes MD polyethylene glycol 3350 (Miralax) 17 grams PO DAILY 90 days Tobacco use date assessed: 01/31/25 Dental Screening Dental Screen Date: 01/31/25 HPI lab review HPI Details History - The patient is a 29-year-old female pr esenting with bloating and constipation. - The symptoms have persisted despite st arting a fiber supplement. - The patient has been advised to see a senior telecommunications technician for further evaluation. - Laboratory results indicate elevated l iver enzymes, which may suggest fatty liver disease. - The patient has a history of dairy int olerance, which exacerbates bloating and constipation. - The patient has eliminated dairy from her diet, resulting in symptom improvement. how ever continue to have constipation, has never see gastro for proper diagnosis patient is aware that it can be IBS Problem List - Bloating - Constipation - Elevated liver enzymes - Possible fatty liver - Dairy intolerance Patient Instructions - Continue to avoid dairy products to pr event bloating and constipation. - Keep a food diary to identify any othe r potential food intolerances. - Follow up with a senior telecommunications technician as scheduled for further evaluation. Review of Systems - General: No fever no chills - Neurological: No headaches no dizziness - Ear nose throat: No sore throat no hearing difficulty no ear pain - PFSH Surgical History Hx of hernia repair Family History Mother Ovarian cancer Other No history of cancer Social History Alcohol intake: current Alcohol intake frequency: holidays/special occasions only Patient Tobacco Use Status: Never used Tobacco e-Cigarette/Vaping Use: Never Used Substance Use Type: Marijuana service: No Current occupational exposures/hazards: No Sexual orientation: Straight/Heterosexual Gender identity: Female Cognitive needs: No Hearing needs: No Vision needs: No Female Reproductive History Menstrual Age of Menarche: 12 Questionnaire Thrive Questionnaire Date Thrive assessed: 01/31/25 ERINN-7 AMB Questionnaire ERINN-7 Date ERINN - 7 assessed: 01/31/25 Source: Developed by Drs. Yadiel Hill, Debbie Carmona, Mitch Stevenson and colleagues, with an educational karen from [employer] Physical exam (Primary Care) Tobacco/Smoking Status: Tobacco use Status Tobacco use date assessed 01/31/25 02/06/25 09:01 Patient Tobacco Use Status Never used Tobacco 02/06/25 09:01 e-Cigarette/Vaping Use Never Used 02/06/25 09:01 Thrive Assessment: Date of Thrive Assessment Date Thrive assessed 01/31/25 02/06/25 09:01 Telehealth Telehealth Telehealth Platform: [place] [facility] [place] Location of provider rendering services: practice address Location of patient: address on file Patient Identification confirmed using: Name, : Yes Telehealth method: video Patient verbally consented to treatment: Yes Patient verbally consented to billing insurance company: Yes Patient informed of any privacy concerns related to visit: Yes Minutes spent on Phone/Video with Pt.: 13 Coding Level of Care Code Tele Est Pt Level 3 (64687) Diagnoses Abdominal bloating R14.0 Constipation by delayed colonic transit K59.01 Assessment & Plan Assessment & Plan (1) Abdominal bloating: Code(s): R14.0 - Abdominal distension (gaseous) Category: Medical (2) Constipation by delayed colonic transit: Code(s): K59.01 - Slow transit constipation Category: Medical Plan History - The patient is a 29-year-old female presenting with bloating and constipation. - The symptoms have persisted despite starting a fiber supplement. - The patient has been advised to see a senior telecommunications technician for further evaluation. - Laboratory results indicate elevated liver enzymes, which may suggest fatty liver disease. - The patient has a history of dairy intolerance, which exacerbates bloating and constipation. - The patient has eliminated dairy from her diet, resulting in symptom improvement. how ever continue to have constipation, has never see gastro for proper diagnosis patient is aware that it can be IBS Problem List - Bloating - Constipation - Elevated liver enzymes - Possible fatty liver - Dairy intolerance Patient Instructions - Continue to avoid dairy products to prevent bloating and constipation. - Keep a food diary to identify any other potential food intolerances. - Follow up with a senior telecommunications technician as scheduled for further evaluation. Orders: Referrals 2 Gastroenterology Referral K59.01 - Slow transit constipation, R14.0 - Abdominal distension (gaseous) Medications: New simethicone (Gas Relief (simethicone)) 125 mg PO TID PRN 30 tabs 0RF abdominal distention 10 days
== END 2025-02-06 09:13 | disposition home or self-care (01) ==
LOC: HO.HMCC 08:34
PROVIDERS: PCP Internal Medicine; Visit Provider Internal Medicine
DX: R14.0 Abdominal distension (gaseous) (principal); K59.01 Slow transit constipation

== ENCOUNTER → 2025-02-06 08:34 | Outpatient (BNVA) | payer OTHER, SELFPAY | PROVIDERS: PCP Internal Medicine; Visit Provider Internal Medicine ==

== ENCOUNTER 2025-02-27 08:21 | Outpatient (AMB) | payer OTHER, SELFPAY ==
--- OUTSIDE RECORDS SUMMARY | 2025-02-27 08:32 | XMS_ITS | Clinical Summary ---
Author Organization [facility] Address [address] [place] [address] Care Team Providers Care Integration Lead Name Role Phone Unavailable Primary Care Provider [...] Cervical Cancer Screening 2018 Pap Smear 2018 Rzk-[id number] ( season) 2024 09/10/2021, 02/24/2021, 01/27/2021 Imm-Influenza (#1) 2024 06/14/2021 Alcohol and Drug Screen 08/21/2024 Depression Annual Screen 08/21/2024 Cervical Ablation/Cold-Knife Conization Discontinued Cervical Cryotherapy Discontinued Colposcopy Discontinued Endometrial Biopsy Discontinued Excision/Leep Discontinued HPV Genotyping Discontinued Vaginal Pap Discontinued Vulvoscopy Discontinued Insurance COVID[facility]
--- OUTSIDE RECORDS SUMMARY | 2025-02-27 08:32 | XMS_ITS | Clinical Summary ---
Author Organization [facility] Address [address] [place] [address] Care Team Providers Care Leather Goods Sales Representative Name Role Phone Pcp, No Primary Care Provider Unavailabl e Pcp, No Unavailable Unavailable Allergies No known active allergies Medications etonogestrel (NEXPLANON) 68 MG implant 68 mg by Subdermal route once. Active metroNIDAZOLE (METROGEL) 0.75 % vaginal gelIndications :Possible exposure to STD Insert 37.5 mg (1 Applicatorful total) into the vagina nightly. 70 g 2 Active doxycycline (MONODOX) 100 MG capsuleIndicat ions:Vaginal discharge Take 1 capsule (100 mg total) by mouth 2 (two) times a day. 14 capsule 2 Active Active Problems No known active problems Immunizations Immunization Administration Dates Next Due PPD Test 06/06/2019 Social History Tobacco Use Types Packs/Day Years Used Date Smoking Tobacco: Never Smokeless Tobacco: Never Tobacco Cessation:Counseling Given: No Comments No Sex and Gender Information Value Date Recorded Sex Assigned at Not on file Legal Sex Female 6:20 PM EDT Gender Identity Not on file Sexual Orientation Not on file Last Filed Vital Signs Vital Sign Reading Time Taken Comments Blood Pressure 114/74 04/04/2022 10:08 AM EDT Pulse 72 04/04/2022 10:08 AM EDT Temperature 36.3 C (97.4 F) 04/04/2022 10:08 AM EDT Respiratory Rate 18 05/31/2020 11:56 AM EDT Oxygen Saturation 98% 04/04/2022 10:08 AM EDT Inhaled Oxygen Concentration - - Weight 64.4 kg (142 lb) 03/01/2020 1:32 PM EDT Height 154.9 cm (5' 1 ) 05/26/2020 12:18 PM EDT Body Mass Index 27.73 03/01/2020 1:32 PM EDT Plan of Treatment Health Maintenance Due Date Last Done Comments Hepatitis C Virus Screening 1997 HIV Screening 2010 DTaP/Tdap/Td Vaccines (1 - Tdap) 2016 Hepatitis B Vaccines (1 of 3 - 19+ 3-dose series) 2016 Pap Smear (Ages 21-65) 2018 COVID-19 Vaccine ( - 2023-2 5 season) 2024 09/10/2021 Influenza Vaccine 03/21/2025 10/16/2014 HPV Vaccines Aged Out No longer eligi ble based on patient's age to complete this topic Pneumococcal Vaccine: Pediat eduardo (0-5 Years) and At-Risk Patients (6 to 49 Years) Aged Out No longer eligible b ased on patient's age to complete this topic Insurance [facility] Care Teams Leather Goods Sales Representative Relationship Specialty Start Date End Date Pcp, No PCP - General General Medicine 09/11/17 Pcp, No General Medicine 09/11/17
--- OUTSIDE RECORDS SUMMARY | 2025-02-27 08:32 | XMS_ITS | Encounter Summary ---
Author Organization [facility] Address [address] [place] [address] Phone -[phone] Care Team Providers Care Driver'S License Reviewing Officer Name Role Phone Obtain, Unable To Primary Care Provider Unavaila ble Encounter Details Date Type Department Care Team (Late st Contact Info) Description 10/17/2014 Scanned Document [facility] [address] [place] [address] External, Provider Social History Tobacco Use Types Packs/Day Years Used Date Smoking Tobacco: Never Alcohol Use Standard Drinks/Week Comments No 0 (1 standard drink = 0.6 oz pur e alcohol) Comments Unknown Sex and Gender Information Value Date Recorded Sex Assigned at Not on file Legal Sex Female 6:25 AM EST Gender Identity Not on file Sexual Orientation Not on file documented as of this encounter Plan of Treatment Not on file documented as of this encounter Procedures Procedure Name Priority Date/Time Associated Diagnosis Comments EKG Routine 10/16/2014 documented in this encounter Results * EKG (10/16/2014) us Provider External ECG ORDERABLES Final Result documented in this encounter Visit Diagnoses Not on filedocumented in this encounter Additional Health Concerns Assessment Noted Time PHQ-9 Depression Total Score: 0 10/16/19 15 3:31 PM EST documented as of this encounter Care Teams Driver'S License Reviewing Officer Relationship Specialty Start Date End Date Obtain, Unable To PCP - General 09/24/18 documented as of this encounter
--- NOTE | 2025-02-27 09:01 | MHC.PC.OV ---
Intake Visit Reasons: 2-3 weeks f/u Allergies No Known Allergies Allergy (Verified 01/31/25 12:21) Medication List - Last Reconciled 02/27/25 by Micky Cervantes MD polyethylene glycol 3350 (Miralax) 17 grams PO DAILY 90 days simethicone (Gas Relief (simethicone)) 125 mg PO TID PRN 10 days Tobacco use date assessed: 01/31/25 Dental Screening Dental Screen Date: 01/31/25 HPI 2-3 weeks f/u HPI Details History - The patient is a 29-year-old female presenting with complaints suggestive of a possible yeast infection and abdominal bloating. - Yeast Infection: Patient reports experiencing symptoms of itching and burning for two days. She notes a history of frequent yeast infections, particularly after recent travel to [place]. There is no history of diabetes or elevated fasting blood sugar levels. - Abdominal Symptoms: Previously reported abdominal discomfort addressed with probiotics, which resulted in improved bowel movements. The patient identified certain food sensitivities including salmon and certain oils that caused bloating. She engages in regular exercise but notes no significant weight loss. Medical History: - Frequent yeast infections Medications: - Probiotics (Seed) for abdominal symptoms - Vitamin D supplement due to low vitamin D level Social History: - [place] [facility] - Regular exercise with a focus on weight management - Avoids foods causing sensitivity such as salmon and certain oils - Reports dietary adjustments for symptoms management Diagnostic Results: - Fasting sugar: 98 mg/dL - Vitamin D: Low - BUN: Low - Electrolytes: Normal - Magnesium: Normal (1.9 mg/dL) - LDL cholesterol: 116 mg/dL - Thyroid function: Normal - CBC: Normal - Liver enzymes: Mildly elevated Problem List - Recurrent Vaginal Candidiasis - Abdominal bloating with food sensitivities - Low Vitamin D - Mildly elevated Liver Enzymes Patient Instructions - Take prescribed Diflucan as directed. - Continue monitoring food intake and avoid foods that cause bloating. - Maintain regular exercise routine. - Follow up with gastroenterology for abdominal symptoms as scheduled. - Continue taking vitamin D supplements. Review of Systems - General: No fever no chills - Neurological: No headaches no dizziness - Ear nose throat: No sore throat no hearing difficulty no ear pain - Cardiovascular: No syncope, no chest pain, no palpitations - Endocrine: No polyuria polydipsia no heat intolerance PFSH Surgical History Hx of hernia repair Family History Mother Ovarian cancer Other No history of cancer Social History Alcohol intake: current Alcohol intake frequency: holidays/special occasions only Patient Tobacco Use Status: Never used Tobacco e-Cigarette/Vaping Use: Never Used Substance Use Type: Marijuana service: No Current occupational exposures/hazards: No Sexual orientation: Straight/Heterosexual Gender identity: Female Cognitive needs: No Hearing needs: No Vision needs: No Female Reproductive History Menstrual Age of Menarche: 12 Questionnaire Thrive Questionnaire Date Thrive assessed: 01/24/25 I am a: Patient What is your living situation today?: I have a steady place to live Within the past 12 months, did the food you bought not last and you didn't have the money to get more?: Sometimes True Within the past 12 months, did you worry whether your food would run out before you got money to buy more?: Sometimes True Do you have trouble paying for medicines?: I choose not to answer this question Do you have trouble getting transportation to medical appointments?: No Do you have trouble paying your heating and electricity bill?: No Do you have trouble taking care of your child, family member or friend?: No Do you have trouble with day-to-day activities such as bathing, preparing meals, shopping, managing finances, etc.?: No Are you currently unemployed and looking for a job?: No Are you interested in more education?: No Please select the resources that you would like help with: None Currently or been in a relationship where the following occur: No concerns reported THRIVE Score: 2 ERINN-7 AMB Questionnaire ERINN-7 Date ERINN - 7 assessed: 01/31/25 Source: Developed by Drs. Yadiel Hill, Debbie Carmona, Mitch Stevenson and colleagues, with an educational karen from [employer]. Physical exam (Primary Care) Tobacco/Smoking Status: Tobacco use Status Tobacco use date assessed 01/31/25 02/27/25 09:01 Patient Tobacco Use Status Never used Tobacco 02/27/25 09:01 e-Cigarette/Vaping Use Never Used 02/27/25 09:01 Thrive Assessment: Date of Thrive Assessment Date Thrive assessed 01/24/25 02/27/25 09:01 Currently or been in a relationship where the following occur: No concerns reported Telehealth Telehealth Telehealth Platform: [employer] Location of provider rendering services: practice address Location of patient: address on file Patient Identification confirmed using: Name, : Yes Telehealth method: video Patient verbally consented to treatment: Yes Patient verbally consented to billing insurance company: Yes Patient informed of any privacy concerns related to visit: Yes Minutes spent on Phone/Video with Pt.: 13 Coding Level of Care Code Tele Est Pt Level 3 (75198) Diagnoses Vaginal yeast infection B37.31 Abdominal bloating R14.0 Constipation by delayed colonic transit K59.01 Assessment & Plan Assessment & Plan (1) Vaginal yeast infection: Code(s): B37.31 - Acute candidiasis of vulva and vagina Category: Medical (2) Abdominal bloating: Code(s): R14.0 - Abdominal distension (gaseous) Category: Medical (3) Constipation by delayed colonic transit: Code(s): K59.01 - Slow transit constipation Category: Medical Plan History - The patient is a 29-year-old female presenting with complaints suggestive of a possible yeast infection and abdominal bloating. - Yeast Infection: Patient reports experiencing symptoms of itching and burning for two days. She notes a history of frequent yeast infections, particularly after recent travel to [place]. There is no history of diabetes or elevated fasting blood sugar levels. - Abdominal Symptoms: Previously reported abdominal discomfort addressed with probiotics, which resulted in improved bowel movements. The patient identified certain food sensitivities including salmon and certain oils that caused bloating. She engages in regular exercise but notes no significant weight loss. Medical History: - Frequent yeast infections Medications: - Probiotics (Seed) for abdominal symptoms - Vitamin D supplement due to low vitamin D level Social History: - [place] [facility] - Regular exercise with a focus on weight management - Avoids foods causing sensitivity such as salmon and certain oils - Reports dietary adjustments for symptoms management Diagnostic Results: - Fasting sugar: 98 mg/dL - Vitamin D: Low - BUN: Low - Electrolytes: Normal - Magnesium: Normal (1.9 mg/dL) - LDL cholesterol: 116 mg/dL - Thyroid function: Normal - CBC: Normal - Liver enzymes: Mildly elevated Problem List - Recurrent Vaginal Candidiasis - Abdominal bloating with food sensitivities - Low Vitamin D - Mildly elevated Liver Enzymes Patient Instructions - Take prescribed Diflucan as directed. - Continue monitoring food intake and avoid foods that cause bloating. - Maintain regular exercise routine. - Follow up with gastroenterology for abdominal symptoms as scheduled. - Continue taking vitamin D supplements. Medications: New fluconazole may repeat second dose 72 hrs after first dose if symptoms persist 150 mg PO Q3D 2 tabs 0RF 2 doses
== END 2025-02-27 09:10 | disposition home or self-care (01) ==
LOC: HO.HMCC 08:21
PROVIDERS: PCP Internal Medicine; Visit Provider Internal Medicine
DX: B37.31 Acute candidiasis of vulva and vagina (principal); R14.0 Abdominal distension (gaseous); K59.01 Slow transit constipation

== ENCOUNTER 2025-05-15 14:45 | Outpatient (AMB) | payer OTHER, SELFPAY ==
--- NOTE | 2025-05-15 14:49 | A.OFFVIS_ITS ---
Vital Signs 05/15/25 14:50 Height 5 ft Weight 156 lb BMI 30.5 BP 101/57 L Blood Pressure Location Lt brachial Position Sitting Pulse 73 Pulse Oximetry (%) 99 Oxygen Delivery Method Room Air Intake Visit Reasons: Constipation, Abd Distension Intake Note: Patient new consult for Constipation, Abd Distension Patient cc: abdominal bloating, between diarrhea and constipation, denies any other GI issues. Knife Finisher Required: No Accompanied by: Self / Same As Patient Allergies No Known Allergies Allergy (Verified 05/15/25 15:07) Medication List - Last Reconciled 05/15/25 by Oumou Garcia CNP HPI HPI Constipation, Abd Distension: Details: Patient is a 29-year-old female with PMH of overweight, dyslipidemia. Referred by PCP for further evaluation of constipation Patient presents with a four-year history of altered bowel habits characterized primarily by infrequent bowel movements, usually every other day, with stool consistency described as loose ([place] type 6) when evacuation occurs. There is frequent bloating, especially with ingestion of lactose-containing foods, and intermittent nausea not associated with pain or vomiting. Patient denies blood in stools, significant abdominal pain (except for rare, sharp right lower quadrant discomfort occurring sporadically over months), rectal pain, vomiting, or appetite change. Fiber-rich diet reported; laxatives and fiber supplements do not provide relief and sometimes exacerbate bloating or constipation. Probiotic supplementation (seed-based) has improved stool regularity and bloating when consistently used. Notable family history includes mother with GI symptoms and prior colonic surgery for obstructive pathology (details unclear), as well as siblings with similar bloating. Mildly elevated liver enzymes were recently noted on laboratory review; prior thyroid testing normal, and no current evidence of anemia or significant weight fluctuation. No prescription or daily medications in use. encouraged cervial screening Patient denies: fever/chills, vomiting , appetite changes, pyrosis, regurgitation,dysphasia, unintentional wt loss, ab pain or melena/hematochezia. Social hx: -Regular fiber intake including salads, beans (legumes), chickpeas, variable meal frequency (occasionally skips meals), lactose sensitivity with bloating and constipation after certain dairy products, water as preferred beverage, low intake of soda/juice. -ETOH use, Socially (holidays, birthdays). -smokes marijuana 1-2x/week, denies other recreational drug use -hookah socially, otherwise denies nicotine dependence - family hx as below -denies personal hx of CA PFSH Medical History (Updated 05/15/25 @ 15:40 by Oumou Garcia CNP) Elevated LFTs Surgical History Hx of hernia repair Family History (Updated 05/15/25 @ 15:10 by Pearl Peterson) Mother Ovarian cancer Colon abnormality Father Heart disease Other No history of cancer Social History Alcohol intake: current Alcohol intake frequency: holidays/special occasions o nly Patient Tobacco Use Status: Never used Tobacco e-Cigarette/Vaping Use: Never Used Substance Use Type: Marijuana service: No Current occupational exposures/hazards: No Sexual orientation: Straight/Heterosexual Gender identity: Female Cognitive needs: No Hearing needs: No Vision needs: No Female Reproductive History Menstrual Age of Menarche: 12 Review of Systems Const Reports as per HPI ENT Reports as per HPI Card Reports as per HPI Resp Reports as per HPI GI Reports as per HPI Reports as per HPI Physical Exam Vital Signs: Last Vital Signs Pulse 73 05/15/25 14:50 BP 101/57 L 05/15/25 14:50 Pulse Ox 99 05/15/25 14:50 Oxygen Delivery Method Room Air 05/15/25 14:50 BMI result Body Mass Index 30.5 Const General: healthy appearing, no acute distress and well developed Nutritional Appearance: average body habitus Orientation/consciousness: patient oriented x3 HEENT Head: Yes normal to inspection, Yes normocephalic and Yes atraumatic Face and sinus: Yes normal facial exam Eyes General: appearance normal, both eyes and all related structures Neck Neck: Yes normal visual inspection Resp Effort & Inspection: normal respiratory effort, able to speak in complete sentences, no tracheal deviation and symmetric chest movement Cardio Jugular venous distension: no JVD GI Inspection: Yes normal to inspection and Yes obesity Palpation (GI): Soft to palpation, Tenderness to palpation present (GI) and hepatosplenomegaly present Auscultation: normal bowel sounds Neuro General: patient oriented x3 Gait exam (Neuro): Normal gait present Psych Appearance: grossly normal Mental Status: mental status grossly normal Speech and movement: Normal speech and movement present Affect: normal affect Attitude: cooperative Thought process: Normal thought process present Thought content: Normal thought content present Insight: Good insight present (Psych) Judgement: Good judgement present (Psych) Assessment & Plan Assessment & Plan (1) Constipation by delayed colonic transit: Code(s): K59.01 - Slow transit constipation Category: Medical Plan: Longstanding constipation with loose stools, dietary triggers (especially lactose), absence of alarming features or significant weight loss. Family history of similar symptoms and GI pathology. No evidence of metabolic, infectious, or neoplastic etiology based on available data. Additional Testing: - Stool studies (to rule out infectious causes, parasites). - Repeat and expanded bloodwork: CBC, CMP, liver panel, A1C, celiac serologies - consider motility study ( ie anorectal manometry) Medication Management: - Continue current probiotic supplementation as tolerated and affordable. - No new prescription at this time; patient declined lactulose trial due to concern for loose stools. Lifestyle Recommendations: - Continue high fiber diet as tolerated. - Maintain hydration with water. - Minimize lactose intake or consider lactase enzyme/lactose-free alternatives. - Incorporate fermented foods as tolerable (e.g., sauerkraut, kombucha). Follow-Up: - Re-evaluate in 6 weeks or sooner for red flag symptoms (GI bleeding, severe pain, unexplained weight loss, persistent nausea/vomiting). (2) Elevated LFTs: Code(s): R79.89 - Other specified abnormal findings of blood chemistry Category: Medical Plan: Mild elevation on recent fasting labs, in absence of anemia or metabolic derangements (diabetes/thyroid), with family history of metabolic and GI conditions. Possible causes include NAFLD, celiac disease, viral hepatitis, autoimmune. Additional Testing: - Expanded liver panel. - Viral hepatitis serologies. - Celiac serology. - HbA1c (assess for metabolic syndrome). Medication Management: - No pharmacologic intervention at this time. Lifestyle Recommendations: - Continue whole-food, high-fiber diet. - Regular physical activity. - Optimize body weight. - Avoid excess alcohol. Follow-Up: - Review lab results; escalate to imaging or hepatology referral if persistent or worsening. Plan Follow-up in 6 weeks or sooner as needed Time: I spent a total of 30 minutes on the date of encounter which includes: Preparing to see the patient (reviewed previous documentation, test results and medical history) Performing a medically appropriate exam and/or evaluation Ordering medications, tests, and procedures Documenting clinical information in the health record Orders: Orders Ferritin Today R7 - Other specified abnormal findings of blood chemistry Hepatitis A,B,C Profile Today R7 - Other specified abnormal findings of blood chemistry Smooth Muscle Antibody Today R7 - Other specified abnormal findings of blood chemistry Mitochondrial Antibody Today R7 - Other specified abnormal findings of blood chemistry CHARO Reflex Titer and Pattern Today - Other specified abnormal findings of blood chemistry Ova and Parasite Today K59.01 - Slow transit constipation Fecal Fat Qualitative Today K59.01 - Slow transit constipation Transglutaminase IgA Today R7 - Other specified abnormal findings of blood chemistry Hemoglobin A1c Today R7 - Other specified abnormal findings of blood chemistry Prothrombin Time INR Today R7 - Other specified abnormal findings of blood chemistry Coding Level of Care Code New Pt New Pt Level 3 (16446) Patient Type New Diagnoses Constipation by delayed colonic transit K59.01 Elevated LFTs R7
[2025-05-15 14:50] VITALS: BP 101/57; PULSE 73; O2SAT 99; BMI 30.5
--- OUTSIDE RECORDS SUMMARY | 2025-05-15 19:04 | XMS_ITS | Clinical Summary ---
Author Organization [facility] Address [address] [place] [address] Care Team Providers Care Pack Press Operator Name Role Phone Pcp, No Primary Care [...] series) 2016 Pap Smear (Ages 21-65) 2018 HPV Vaccines (1 - 3-dose SCD M series) 2024 Influenza Vaccine 03/21/2025 10/16/2014 COVID-19 Vaccine (2 - 2024-2 6 season) 2025 09/10/2021 Pneumococcal Vaccine: Pediat eduardo (0-5 Years) and At-Risk Patients (6 to 49 Years) Aged Out No longer eligible b ased on patient's age to complete this topic Insurance [facility] Care Teams Pack Press Operator Relationship Specialty Start Date End Date Pcp, No PCP - General General Medicine 09/11/17 Pcp, No General Medicine 09/11/17
--- OUTSIDE RECORDS SUMMARY | 2025-05-15 19:04 | XMS_ITS | Encounter Summary ---
Author Organization [facility] Address [address] [place] [id number] Care Team Providers Care Ending Machine Operator Name Role Phone Obtain, Unable To Primary Care Provider Unavaila ble Encounter Details Date Type Department Care Team ([facility] st Contact Info) Description 09/07/2012 Abstract [facility] Health Information Management [address] [place] [id number] [place], Primary Care [address] [place] [id number] Social History Tobacco Use Types Packs/Day Years Used Date Smoking Tobacco: Never Assessed Comments Unknown Sex and Gender Information Value Date Recorded Sex Assigned at Not on file Legal Sex Female 6:25 AM EST Gender Identity Not on file Sexual Orientation Not on file documented as of this encounter Last Filed Vital Signs Vital Sign Reading Time Taken Comments Blood Pressure - - Pulse - - Temperature - - Respiratory Rate - - Oxygen Saturation - - Inhaled Oxygen Concentration - - Weight 13.8 kg (30 lb 6.8 oz) 1 12:01 AM EDT Height 91.5 cm (3' 0.02 ) 12/13/2000 12 :01 AM EDT Body Mass Index 14.57 12/13/2000 12:01 AM EDT Body Mass Index Percentile 15.25% 12/13 12:01 AM EDT Growth Chart: [facility] (Girls, 2- 20 Years) documented in this encounter Plan of Treatment Not on file documented as of this encounter Visit Diagnoses Not on filedocumented in this encounter Care Teams Ending Machine Operator Relationship Specialty Start Date End Date Obtain, Unable To PCP - General 09/24/18 documented as of this encounter
--- OUTSIDE RECORDS SUMMARY | 2025-05-15 19:04 | XMS_ITS | Clinical Summary ---
Author Organization [facility] [address] Address [address] [place] [phone] Phone Care Team Providers Care State Wildlife Officer Name Role Phone Obtain, Unable To Primary Care Provider Unavaila ble Medications No known medications Active Problems No known active problems Immunizations Immunization Administration Dates Next Due DTaP 12/12/2002, 9,07/13/1998,04/20,01/30/1998 HPV, quadrivalent 01/07/2009,07/17/2007,03/13/20 07 Hep A, ped/adol, 2 dose 10/16/2014 Hep B, adolescent or pediatric 07/13/1998,1997,1997 Hib (PRP-T) 02/04/1999, 8,04/20/1998,01/30 Influenza, injectable, quadr ivalent, preservative free 10/16/2014 MMR 12/03/2001,11/30/1998 Meningococcal MCV4P - Menactra 01/07/2009 Meningococcal MPSV4 10/16/2014 Oral Polio (OPV) 05/28/1999 Polio (IPV) 12/12/2002, 9,04/20/1998,01/30 TB Screening (PPD/Quantiferon) 03/13/2007,2001 Tdap 01/07/2009 Varicella, live 03/16/2007,11/30/1998 Family History Medical History Relation Name Comments Asthma Maternal Grandmother Diabetes Maternal Grandmother Heart disease Maternal Grandmother High cholesterol Maternal Grandmother Hypertension Maternal Grandmother Mental health Maternal Grandmother Mental health Maternal Uncle Vision loss Sister 2 Asthma Sister 3 Relation Name Status Comments Father Alive Maternal Aunt Alive Maternal Grandfather Maternal Grandmother Alive Maternal Uncle Alive Mother Alive Paternal Aunt Alive Paternal Grandfather Alive Paternal Grandmother Alive Paternal Uncle Alive Sister 1 Alive Sister 2 Alive Sister 3 Alive Social History Tobacco Use Types Packs/Day Years [...] Sign Reading Time Taken Comments Blood Pressure 117/73 09/24/2018 4:34 PM EST Pulse 80 09/24/2018 4:34 PM EST Temperature 36.7 C (98 F) 09/24/2018 1:44 PM EST Respiratory Rate 16 09/24/2018 4:34 PM EST Oxygen Saturation 98% 09/24/2018 4:34 PM EST Inhaled Oxygen Concentration - - Weight 49.2 kg (108 lb 6.4 oz) 10/16/2014 2:28 P M EST Height 152.4 cm (5') 10/16/2014 2:28 PM EST Body Mass Index 21.17 10/16/2014 2:28 PM EST Plan of Treatment Health Maintenance Due Date Last Done Comments HIV screening 2010 Hepatitis C screening 11/27/2015 Cervical cancer screening 2018 Tetanus adult (Td q 10,TDAP once) 01/07/2019 01/07/2009, 12/12/2002, 02/04/1999, Additional history exists Influenza vaccine 03/21/2025 10/16/2014 Covid-19 vaccine series ( season) 2025 RSV Immunization (1 - 1-dose 75+ series) 2072 Chlamydia screening Discontinued 10/16/2014 Meningococcal Vaccine Aged Out 10/16/2014, 009 No longer eligible based on patient's age to complete this topic Meningococcal B Vaccine Aged Out No l onger eligible based on patient's age to complete this topic Pneumococcal Vaccine (2 - 49 years) Aged Out No longer eligible based on patient's age to complete this topic Procedures Procedure Name Priority Date/Time Associated Diagnosis Comments VY, VAGINOSIS/VAGINITIS PLUS (Q) Routine 10/16/2014 5:00 PM EST from Last 3 Months or Most Recently Relevant to Health Maintenance Results * SureSwab??, vaginosis/vaginitis plus (Q) (10/16/2014 5:00 PM EST) C. trachomatis RNA, TMA Not Detected Not Detected [facility] Comment: Neisseria gonorrhoeae RNA, TMA Not Detected Not Detected [facility] Comment: This test was performed using the APTBuyMyHome COMBO2(R) Assay (GENBetterYouPROBE(R)). The analytical performance characteristics of this assay, when used to test SurePath(R) specimens have been determined by Georgina Goodman. BV Category: NOT SUPPORTIVE NOT SUPPORTIV [facility] Lactobacillus species Not Detected Log (cells/mL) [facility] Atopobium vaginae Not Detected Log (cells/mL) [facility] Megasphaera species Not Detected Log (cells/mL) [facility] Gardnerella vaginalis <4.7 Log (cells/mL) [facility] Comment: NOT SUPPORTIVE OF BV: The pattern of results is not supportive of a diagnosis of BV: 1)Presence of Lactobacillus spp., G. vaginalis levels less than 6.0 log cells/mL, and absence of A. vaginae and Megasphaera spp; or 2)Absence of all targeted organisms; or 3)Absence of Lactobacillus spp. plus G. vaginalis detected at levels less than 6.0 log cells/mL and absence of A. vaginae and Megasphaera spp. EQUIVOCAL FOR BV: The pattern of results is neither supportive nor not supportive of a diagnosis of BV. The patient may be in transition into or out of BV: Presence of Lactobacillus spp. plus G. vaginalis (greater or equal to 6.0 log cells/mL) and/or one of the other BV-associated pathogens. SUPPORTIVE OF BV: The pattern of results is supportive of a diagnosis of BV: Absence of Lactobacillus spp. and presence of G. vaginalis greater than or equal to 6.0 log cells/mL and/or one or both of the other BV-associated pathogens. Concentration for Lactobacilli (L. acidophilus/ crispatus, L. jensenii) are collectively reported under the term Lactobacillus spp. , as these species are among the peroxide producing Lactobacilli thought to be protective against bacterial vaginosis. Atopobium vaginae, Megasphaera spp., and Gardnerella (greater than 6.0 log cells/mL) have been associated with vaginosis when present in the absence of peroxide producing Lactobacilli. This test was developed and its performance characteristics have been determined by [facility]ina Goodman [place], [place]. Performance characteristics refer to the analytical performance of the test. SureSwab Trichomonas vaginalis RNA, Ql TMA Not Detected Not Detected [facility] Comment: This test was performed using the X-Scan ImagingIMA Trichomonas vaginalis Assay (GenBetterYouProbe). For more information on this test, go to http://education.1bib/faq/ Trichomonastma C. albicans, DNA Not Detected Not Detected [facility] C. glabrata, DNA Not Detected Not Detected [facility] C. tropicalis, DNA Not Detected Not Detected [facility] C. parapsilosis, DNA Not Detected Not Detected [facility] Comment: This test was developed and its performance characteristics have been determined by Georgina Goodman [place], [place]. Performance characteristics refer to the analytical performance of the test. 10/16/2014 5:00 PM EST 10/16/2014 5:00 PM EST Narrative Resulting Agency Comment Performing Organization Information: Site ID: AMD Name: Georgina Goodman/Colin [facility] Address: [address] [place] [phone] Director: Deonte Fragoso M.D. Pearl Cole APRN BODY FLUIDS AND STOOLS ORDERA BLES Final Result [facility] [address] from Last 3 Months or Most Recently Relevant to Health Maintenance Insurance [facility] MEDICAID [place] Care Teams State Wildlife Officer Relationship Specialty Start Date End Date Obtain, Unable To PCP - General 09/24/18
--- OUTSIDE RECORDS SUMMARY | 2025-05-15 19:04 | XMS_ITS | Encounter Summary ---
Author Organization [facility] Address [address] [place] [address] Phone -[phone] Care Team Providers Care Verification Engineer Name Role Phone Obtain, Unable To Primary Care Provider Unavaila ble Encounter Details Date Type Department Care Team (Late st Contact Info) Description 10/17/2014 Scanned Document [facility] [address] [place] [address] External, Provider Social History Tobacco Use Types [...] documented as of this encounter Care Teams Verification Engineer Relationship Specialty Start Date End Date Obtain, Unable To PCP - General 09/24/18 documented as of this encounter
--- OUTSIDE RECORDS SUMMARY | 2025-05-15 19:04 | XMS_ITS | Clinical Summary ---
Author Organization [facility] Address [address] [place] [address] Care Team Providers Care Education Spec Name Role Phone Unavailable Primary Care Provider [...] Cervical Cancer Screening 2018 Pap Smear 2018 Alcohol and Drug Screen 08/21/2024 Depression Annual Screen 08/21/2024 Imm-HPV (1 - 3-dose SCDM series) 2024 [id number] ( - 2024- season) 2025 09/10/2021, 02/24/2021, 01/27/2021 Imm-Influenza (#1) 2025 06/14/2021 Cervical Ablation/Cold-Knife Conization Discontinued Cervical Cryotherapy Discontinued Colposcopy Discontinued Endometrial Biopsy Discontinued Excision/Leep Discontinued HPV Genotyping Discontinued Vaginal Pap Discontinued Vulvoscopy Discontinued Insurance COVID[facility] UN[facility] AND TREATMENT FUND
== END 2025-05-15 15:53 | disposition home or self-care (01) ==
LOC: HO.HGI 14:46
PROVIDERS: PCP Internal Medicine; Visit Provider Nurse Practitioner Family
DX: K59.01 Slow transit constipation (principal); R79.89 Other specified abnormal findings of blood chemistry
CPT/HCPCS: 99203

== ENCOUNTER 2025-05-21 11:39 | Outpatient (AMB) | payer OTHER, SELFPAY ==
--- NOTE | 2025-05-21 11:45 | MHC.OFFVIS ---
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 She is dealing with some elevated lab results which have pointed than her action of possibly having fatty liver disease she has not been able no matter what she does and she has been very consistent with going to the gym. She has been trying to add more fiber and veggies to her diet but it is challenging. She is sexually active with a partner she would be interested in testing for STIs just to be sure if she gets she gets she also does occasionally skip a period. She does know this is related to being overweight as well. She works as a dope maintenance worker. [facility] Medical History (Updated 05/21/25 @ 12:44 by Vicky Hanks CNM) Elevated LFTs Surgical History Hx of hernia repair Family History Mother Ovarian cancer Colon abnormality Father Heart disease Other No history of cancer Social History Alcohol intake: current Alcohol intake frequency: holidays/special occasions only Patient Tobacco Use Status: Never used Tobacco e-Cigarette/Vaping Use: Never Used Substance Use Type: Marijuana service: No Current occupational exposures/hazards: No Sexual orientation: Straight/Heterosexual Gender identity: Female Cognitive needs: No Hearing needs: No Vision needs: No Female Reproductive History Menstrual Age of Menarche: 12 Date of last menstrual period: 04/24/25 control method: none Total pregnancies: 0 Date of last pap smear: 04/21/22 (negative) Physical Exam Vital Signs: Last Vital Signs BP 100/60 05/21/25 12:04 BMI result Body Mass Index 31.2 Const General: healthy appearing, comfortable, no acute distress, well developed and alert Nutritional Appearance: average body habitus Orientation/consciousness: patient oriented x3 Limitations: no limitations HEENT Head: Yes normocephalic Neck Neck: Yes normal visual inspection Chest Chest palpation & inspection: normal inspection of the chest Breast/axilla inspection: normal inspection of the breasts and normal inspection of the axillae Breast/axilla palpation: normal palpation of the breasts and normal palpation of the axillae Resp Effort & Inspection: normal respiratory effort GI Inspection: Yes normal to inspection, No Abdominal wall edema and No distended Palpation (GI): Soft to palpation and nontender Other: External exam within normal limits vagina is pink and moist normal scant whitish mucus consistent with luteal phase cervix nulliparous pink smooth healthy mobile nontender uterus nontender nonenlarged adnexa nontender nonenlarged. General: Yes bladder normal to palpation External Female Exam: normal external appearance and normal appearance of the urethra Speculum Exam - Vagina: normal appearance of the vagina, normal palpation and normal vaginal discharge Speculum Exam - Cervix: normal appearance of the cervix, normal palpation and nontender Bimanual exam- vagina & uterus: normal bimanual exam, normal palpation, uterine size normal, bladder normal to palpation, consistency normal, normal palpation, uterine mobility normal, uterine shape normal, No Cervical tenderness present, non-tender and no cervical motion tenderness Bimanual Exam- Adnexa, other: normal adnexae, no masses, normal and No adnexal tenderness Neuro General: patient oriented x3 Assessment & Plan Assessment & Plan (1) Well woman exam with routine gynecological exam: Comment: Discussed: Pap per ASCCP guideline ACHES reviewed, abdominal pain, chest pain, SOB, severe abdominal pain, loss of vision, pain or tenderness in an extremity Safe sex/condoms always. Renew OCPs Offered STD testing. Patient is agreeable Sign Patient Portal Code(s): Z01.419 - Encounter for gynecological examination (general) (routine) without abnormal findings Category: Medical (2) Encounter for annual routine gynecological examination: Code(s): Z01.419 - Encounter for gynecological examination (general) (routine) without abnormal findings Category: Medical (3) Potential exposure to STD: Code(s): Z20.2 - Contact with and (suspected) exposure to infections with a predominantly sexual mode of transmission Category: Medical (4) Irregular menses: Code(s): N92.6 - Irregular menstruation, unspecified Category: Medical (5) Obesity (BMI 30.0-34.9): Code(s): E66.811 - Obesity, class 1 Category: Medical Plan -----Discussed in this visit the following: healthy balanced diet, regular and consistent exercise, getting recommended health screens, doing the best she can for her particular health concerns, kegel exercises, pap smear screening and followup recommendations, mammography screening and SBE, normal changes in cycles in her life stage--- . Discussed the interplay between being overweight and irregular menses and potential challenges in telling when she may ovulate when this becomes more important information for her to be aware of in the future. Also the connection between obesity and fatty liver. She is very consistent with the gym -with both weights and cardio. discussed the challenges of dietary adjustments as well and how challenging this can be. Gave a handout on the Mediterranean and old ways lighten diet to see if there any ideas there that could be useful. 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 Pap smear was done as well as testing for STIs and I offered testing for blood work for STIs which she will get done with her other labs. I also suggested keeping close track of her menstrual cycle and so she could track any particular symptoms she might have to see how they might relate. Is might help her in the future figure out when she is ovulating. Orders: Orders Hepatitis C Antibody Today Z20.2 - Contact with and (suspected) exposure to infections with a predominantly sexual mode of transmission Syphilis Screen Today Z20.2 - Contact with and (suspected) exposure to infections with a predominantly sexual mode of transmission Hepatitis B Surface Antigen Today Z20.2 - Contact with and (suspected) exposure to infections with a predominantly sexual mode of transmission HIV Ab/Ag Today Z20.2 - Contact with and (suspected) exposure to infections with a predominantly sexual mode of transmission Coding Level of Care Code Est Pt Prev Care 18-39y([id number]) Diagnoses Well woman exam with routine gynecological exam Z01.419 Encounter for annual routine gynecological examination Z01.419 Potential exposure to STD Z20.2 Irregular menses N92.6 Obesity (BMI 30.0-34.9) E66.810
[2025-05-21 12:04] VITALS: BP 100/60; BMI 31.2
--- OUTSIDE RECORDS SUMMARY | 2025-05-21 13:12 | XMS_ITS | Clinical Summary ---
Author Organization [facility] [address] Address [address] [place] [phone] Phone Care Team Providers Care Air Conditioning Mechanic Industrial Name Role Phone Obtain, Unable To Primary [...] Menactra 01/07/2009 Meningococcal MPSV4 10/16/2014 Oral Polio (OPV-Trivalent) N ot used after 11/20/2015 05/28/1999 Polio (IPV) 12/12/2002, 9,04/20/1998,01/30 TB Screening [...] vaccine 03/21/2025 10/16/2014 Covid-19 vaccine series ( - 2023- season) 2025 RSV Immunization (1 - 1-dose [...] Comment: This test was performed using the APTMashMango COMBO2(R) Assay (GENQuick KeyPROBE(R)). The analytical performance characteristics of this assay, when used to test SurePath(R) specimens have been determined by [facility]. BV Category: NOT SUPPORTIVE NOT SUPPORTIV [facility] [...] its performance characteristics have been determined by [facility] [place], [place]. Performance characteristics refer to the analytical performance of the test. Sure[facility]ab Trichomonas vaginalis RNA, Ql TMA Not Detected Not Detected [facility] Comment: This test was performed using the APTIMA Trichomonas vaginalis Assay (GenTiempy). For more information on this test, go to http://education.Blushr/faq/ Trichomonastma C. albicans, DNA Not Detected Not Detected [facility] C. glabrata, DNA Not Detected Not Detected [facility] C. tropicalis, DNA Not Detected Not Detected [facility] C. parapsilosis, DNA Not Detected Not Detected [facility] Comment: This test was developed and its performance characteristics have been determined by [facility] [place], [place]. Performance characteristics refer to the analytical performance of the test. 10/16/2014 5:00 PM EST 10/16/2014 5:00 PM EST Narrative Resulting Agency Comment Performing Organization Information: Site ID: AMD Name: [facility] - innovate | mentor | invest [facility] Address: [address] [place] [phone] Director: Deonte Fragoso M.D. Pearl Cole APRN BODY FLUIDS AND STOOLS ORDERA BLES Final Result [facility] [address] [place] [address], [facility] from Last 3 Months or Most Recently Relevant to Health Maintenance [place] [address] MEDICAID [place] Care Teams Air Conditioning Mechanic Industrial Relationship Specialty Start Date End Date Obtain, Unable To PCP - General 09/24/18"
--- OUTSIDE RECORDS SUMMARY | 2025-05-21 13:12 | XMS_ITS | Clinical Summary ---
Author Organization [facility] Address [address] [place] [address] Care Team Providers Care Dungeon Master Name Role Phone Pcp, No Primary Care [...] patient's age to complete this topic Insurance [facility] Care Teams Dungeon Master Relationship Specialty Start Date End Date Pcp, No PCP - General General Medicine 09/11/17 Pcp, No General Medicine 09/11/17
--- OUTSIDE RECORDS SUMMARY | 2025-05-21 13:12 | XMS_ITS | Encounter Summary ---
Author Organization [facility] Address [address] [place] [phone] Care Team Providers Care High School Band Teacher Name Role Phone Obtain, Unable To Primary Care Provider Unavaila ble Encounter Details Date Type Department Care Team ([facility] st Contact Info) Description 09/07/2012 Abstract [facility] Health Information Management [address] [place] [id number] [place], Primary Care [address] [place] [phone] Social History Tobacco Use Types Packs/Day Years [...] 15.25% 12/13 12:01 AM EDT Growth Chart: [facility] (Girls, 2- 20 Years) documented in this encounter Plan of Treatment Not on file documented as of this encounter Visit Diagnoses Not on filedocumented in this encounter Care Teams High School Band Teacher Relationship Specialty Start Date End Date Obtain, Unable To PCP - General 09/24/18 documented as of this encounter
--- OUTSIDE RECORDS SUMMARY | 2025-05-21 13:12 | XMS_ITS | Encounter Summary ---
Author Organization [facility] Address [address] [place] [address] Phone -x2013 Care Team Providers Care Molded Grid And Parts Inspector Name Role Phone Obtain, Unable To Primary Care Provider Unavaila ble Encounter Details Date Type Department Care Team (Late st Contact Info) Description 10/17/2014 Scanned Document [facility] [address] [place] [address] External, Provider Social History Tobacco Use Types [...] documented as of this encounter Care Teams Molded Grid And Parts Inspector Relationship Specialty Start Date End Date Obtain, Unable To PCP - General 09/24/18 documented as of this encounter
--- OUTSIDE RECORDS SUMMARY | 2025-05-21 13:12 | XMS_ITS | Clinical Summary ---
Author Organization [facility] Address [address] [place] [address] Care Team Providers Care Clinical Data Research Name Role Phone Unavailable Primary Care Provider [...] Imm-HPV (1 - 3-dose SCDM series) 2024 [id number] ( - 2024- season) 2025 09/10/2021, 02/24/2021, 01/27/2021 Imm-Influenza (#1) 2025 06/14/2021 Cervical Ablation/Cold-Knife Conization Discontinued Cervical Cryotherapy Discontinued Colposcopy Discontinued Endometrial Biopsy Discontinued Excision/Leep Discontinued HPV Genotyping Discontinued Vaginal Pap Discontinued Vulvoscopy Discontinued Insurance [facility]19 [facility] UN[facility]ED TEST[place] [address]
== END 2025-05-21 14:37 | disposition home or self-care (01) ==
LOC: HO.HWSM 11:39
PROVIDERS: PCP Internal Medicine; Visit Provider Advanced Practice Midwife
DX: Z01.419 Encounter for gynecological examination (general) (routine) without abnormal findings (principal); Z20.2 Contact with and (suspected) exposure to infections with a predominantly sexual mode of transmission; N92.6 Irregular menstruation, unspecified; E66.811 Obesity, class 1
CPT/HCPCS: 99395; 99459

== ENCOUNTER 2025-05-21 11:39 | Outpatient (REF) | payer OTHER, SELFPAY ==
[2025-05-22 06:06] LABS: Bacterial Vaginosis PCR NEGATIVE (Negative); Candida Group PCR NOT DETECTED (Not Detect); Candida glab krusei PCR NOT DETECTED (Not Detect); Trichomonas vaginalis PCR NOT DETECTED (Not Detect)
[2025-05-22 06:36] LABS: CT PCR NOT DETECTED (Not Detect.); NG PCR NOT DETECTED (Not Detect.)
== END 2025-05-21 11:40 | disposition home or self-care (01) ==
LOC: HO.LAB 11:39
PROVIDERS: PCP Internal Medicine; Visit Provider Advanced Practice Midwife
DX: Z01.419 Encounter for gynecological examination (general) (routine) without abnormal findings (principal); N89.8 Other specified noninflammatory disorders of vagina; N92.6 Irregular menstruation, unspecified; E66.811 Obesity, class 1; Z20.2 Contact with and (suspected) exposure to infections with a predominantly sexual mode of transmission
CPT/HCPCS: 81515; 87491; 87591

== ENCOUNTER 2025-05-21 12:55 | Outpatient (REF) | payer OTHER, SELFPAY | END 2025-05-21 12:56 | disposition home or self-care (01) | LOC: HO.LNP 12:55 | PROVIDERS: Visit Provider Advanced Practice Midwife | DX: Z01.419 Encounter for gynecological examination (general) (routine) without abnormal findings (principal); N89.8 Other specified noninflammatory disorders of vagina | CPT/HCPCS: 88175 ==

== ENCOUNTER 2025-05-23 12:28 | Outpatient (REF) | payer OTHER, SELFPAY ==
--- OUTSIDE RECORDS SUMMARY | 2025-05-23 13:10 | XMS_ITS | Clinical Summary ---
Author Organization [facility] Address [address] [place] [address] Care Team Providers Care Cupola Charger Insulation Name Role Phone Unavailable Primary Care Provider [...] Imm-HPV (1 - 3-dose SCDM series) 2024 [id number] ( - 2024- season) 2025 09/10/2021, 02/24/2021, 01/27/2021 Imm-Influenza (#1) 2025 06/14/2021 Cervical Ablation/Cold-Knife Conization Discontinued Cervical Cryotherapy Discontinued Colposcopy Discontinued Endometrial Biopsy Discontinued Excision/Leep Discontinued HPV Genotyping Discontinued Vaginal Pap Discontinued Vulvoscopy Discontinued Insurance COVID19 [facility]REATMENT FUND
--- OUTSIDE RECORDS SUMMARY | 2025-05-23 13:10 | XMS_ITS | Encounter Summary ---
Author Organization [facility] Address [address] [place] [phone] Care Team Providers Care Senior Research Project Manager Name Role Phone Obtain, Unable To Primary Care Provider Unavaila ble Encounter Details Date Type Department Care Team ([facility] st Contact Info) Description 09/07/2012 Abstract [facility] Health Information Management [address] [place] [phone] [place], Primary Care [address] [place] [phone] Social History Tobacco Use Types Packs/Day Years [...] 15.25% 12/13 12:01 AM EDT Growth Chart: [facility] (Girls, 2- 20 Years) documented in this encounter Plan of Treatment Not on file documented as of this encounter Visit Diagnoses Not on filedocumented in this encounter Care Teams Senior Research Project Manager Relationship Specialty Start Date End Date Obtain, Unable To PCP - General 09/24/18 documented as of this encounter
--- OUTSIDE RECORDS SUMMARY | 2025-05-23 13:10 | XMS_ITS | Encounter Summary ---
Author Organization [facility] Address [address] [place] [address] Phone -[phone] Care Team Providers Care Gas Station Manager Name Role Phone Obtain, Unable To Primary Care Provider Unavaila ble Encounter Details Date Type Department Care Team (Late st Contact Info) Description 10/17/2014 Scanned Document [facility] [address] [place] [address] External, Provider Social History Tobacco Use Types [...] documented as of this encounter Care Teams Gas Station Manager Relationship Specialty Start Date End Date Obtain, Unable To PCP - General 09/24/18 documented as of this encounter
--- OUTSIDE RECORDS SUMMARY | 2025-05-23 13:10 | XMS_ITS | Clinical Summary ---
Author Organization [facility] [address] Address [address] [place] [phone] Phone Care Team Providers Care Operater Name Role Phone Obtain, Unable To Primary [...] Comment: This test was performed using the [employer] Books COMBO2(R) Assay (GENesolidarPROBE(R)). The analytical performance characteristics of this assay, when used to test SurePath(R) specimens have been determined by [facility] BV Category: NOT SUPPORTIVE NOT SUPPORTIV [facility] [...] its performance characteristics have been determined by [facility] [place], [place]. Performance characteristics refer to the analytical performance of the test. SureSwab Trichomonas vaginalis RNA, Ql TMA Not Detected Not Detected [facility] Comment: This test was performed using the APTIMA Trichomonas vaginalis Assay ([employer]). For more information on this test, go to http://education.[employer]/faq/ Trichomonastma C. albicans, DNA Not Detected Not Detected [facility] C. glabrata, DNA Not Detected Not Detected [facility] C. tropicalis, DNA Not Detected Not Detected [facility] C. parapsilosis, DNA Not Detected Not Detected [facility] Comment: This test was developed and its performance characteristics have been determined by [facility] [place], [place]. Performance characteristics refer to the analytical performance of the test. 10/16/2014 5:00 PM EST 10/16/2014 5:00 PM EST Narrative Resulting Agency Comment Performing Organization Information: Site ID: AMD Name: [facility] [facility] Address: [address] [place] [phone] Director: Deonte Fragoso M.D. Pearl Cole APRN BODY FLUIDS AND STOOLS ORDERA BLES Final Result [facility] [address] [place] [address], [facility] from Last 3 Months or Most Recently Relevant to Health Maintenance [place] [address] [place] Care Teams Operater Relationship Specialty Start Date End Date Obtain, Unable To PCP - General 09/24/18
--- OUTSIDE RECORDS SUMMARY | 2025-05-23 13:11 | XMS_ITS | Clinical Summary ---
Author Organization [facility] Address [address] [place] [address] Care Team Providers Care Pharmaceutical Salesperson Name Role Phone Pcp, No Primary Care [...] series) 2016 Pap Smear (Ages 21-65) 2018 Influenza Vaccine 03/21/2025 10/16/2014 COVID-19 Vaccine (2 - 2024-2 6 season) 2025 09/10/2021 HPV Vaccines (No Doses Required) Completed Pneumococcal Vaccine: Pediat eduardo (0-5 Years) and At-Risk Patients (6 to 49 Years) Aged Out No longer eligible b ased on patient's age to complete this topic Insurance [facility] Care Teams Pharmaceutical Salesperson Relationship Specialty Start Date End Date Pcp, No PCP - General General Medicine 09/11/17 Pcp, No General Medicine 09/11/17
[2025-05-23 14:04] LABS: INTERNATIONAL NORM RATIO 0.9 (0.9-1.1); Prothrombin Time 10.7 SEC (10.9-12.4)
[2025-05-23 15:00] LABS: Ferritin 78 ng/mL (10-122)
[2025-05-24 03:58] LABS: Syphilis Screen Nonreactive (Nonreactive)
[2025-05-24 04:32] LABS: HBsAGNum1 0.40 S/CO (0.00-0.99); HIV Num 1 0.06 S/CO (0.00-0.99); Hepatitis B Surface Antigen Negative (Negative); ~HepC Num1 0.09 S/CO (0.00-0.79); ~Hepatitis C Antibody Nonreactive (Nonreactive)
[2025-05-24 04:53] LABS: HBS Num1 7.29 mIU/mL (0-7.99); HBc Num1 0.05 S/CO (0.00-0.79); HBsAGNum1 0.37 S/CO (0.00-0.99); Hepatitis B Surface Antigen Negative (Negative); ~HepC Num1 0.09 S/CO (0.00-0.79); ~Hepatitis B Surface Antibody NONREACTIVE (Nonreactive); ~Hepatitis C Antibody Nonreactive (Nonreactive)
[2025-05-24 05:14] LABS: Hepatitis A Antibody IgM 0.18 Index (0-0.79); ~Hepatitis A Antibody IgM Nonreactive (Nonreactive)
[2025-05-27 21:52] LABS: Anti Nuclear Antibody Screen NEGATIVE (NEGATIVE)
== END 2025-05-23 12:29 | disposition home or self-care (01) ==
LOC: HO.LAB 12:28
PROVIDERS: Absent Provider Advanced Practice Midwife; PCP Internal Medicine; Visit Provider Nurse Practitioner Family
DX: R79.89 Other specified abnormal findings of blood chemistry (principal); Z20.2 Contact with and (suspected) exposure to infections with a predominantly sexual mode of transmission; Z51.81 Encounter for therapeutic drug level monitoring; Z11.59 Encounter for screening for other viral diseases; Z01.84 Encounter for antibody response examination
CPT/HCPCS: 36415; 82728; 83036; 85610; 86015; 86038; 86364; 86381; 86704; 86706; 86709; 86780; 86803; 87340; 87389

== ENCOUNTER 2025-06-10 13:47 | Outpatient (REF) | payer OTHER, SELFPAY ==
--- OUTSIDE RECORDS SUMMARY | 2025-06-10 18:19 | XMS_ITS | Encounter Summary ---
Author Organization [facility] Address [address] [place] [address] Phone -[phone] Care Team Providers Care Acidizer Name Role Phone Obtain, Unable To Primary Care Provider Unavaila ble Encounter Details Date Type Department Care Team (Late st Contact Info) Description 10/17/2014 Scanned Document [facility] [address] [place] [address] External, Provider Social History Tobacco Use Types [...] documented as of this encounter Care Teams Acidizer Relationship Specialty Start Date End Date Obtain, Unable To PCP - General 09/24/18 documented as of this encounter
--- OUTSIDE RECORDS SUMMARY | 2025-06-10 18:19 | XMS_ITS | Clinical Summary ---
Author Organization [facility] Address [address] [place] [address] Care Team Providers Care Log Loader Name Role Phone Unavailable Primary Care Provider [...] Imm-HPV (1 - 3-dose SCDM series) 2024 [id number] ( - 2024- season) 2025 09/10/2021, 02/24/2021, 01/27/2021 Imm-Influenza (#1) 2025 06/14/2021 Cervical Ablation/Cold-Knife Conization Discontinued Cervical Cryotherapy Discontinued Colposcopy Discontinued Endometrial Biopsy Discontinued Excision/Leep Discontinued HPV Genotyping Discontinued Vaginal Pap Discontinued Vulvoscopy Discontinued [facility]
--- OUTSIDE RECORDS SUMMARY | 2025-06-10 18:20 | XMS_ITS | Clinical Summary ---
Author Organization [facility] [address] Address [address] [place] [phone] Phone Care Team Providers Care It Assistant Name Role Phone Obtain, Unable To Primary [...] Comment: This test was performed using the APTEx[employer]em COMBO2(R) Assay (GENQlikTechPROBE(R)). The analytical performance characteristics of this assay, when used to test SurePath(R) specimens have been determined by [email or web address]. BV Category: NOT SUPPORTIVE NOT SUPPORTIV [facility] [...] its performance characteristics have been determined by [email or web address] [place], [place]. Performance characteristics refer to the analytical performance of the test. SureSwab Trichomonas vaginalis RNA, Ql TMA Not Detected Not Detected [facility] Comment: This test was performed using the APTIMA Trichomonas vaginalis Assay ([employer]). For more information on this test, go to http://education.[employer]/faq/ Trichomonastma C. albicans, DNA Not Detected Not Detected [facility] C. glabrata, DNA Not Detected Not Detected [facility] C. tropicalis, DNA Not Detected Not Detected [facility] C. parapsilosis, DNA Not Detected Not Detected [facility] Comment: This test was developed and its performance characteristics have been determined by [email or web address] [place], [place]. Performance characteristics refer to the analytical performance of the test. 10/16/2014 5:00 PM EST 10/16/2014 5:00 PM EST Narrative Resulting Agency Comment Performing Organization Information: Site ID: AMD Name: [email or web address] Address: [address] [place] [phone] Director: Deonte Fragoso M.D. Pearl Cole APRN BODY FLUIDS AND STOOLS ORDERA BLES Final Result [facility] [address] [place] [address], [facility] from Last 3 Months or Most Recently Relevant to Health Maintenance [place] [address] [place] [address] [place] Care Teams It Assistant Relationship Specialty Start Date End Date Obtain, Unable To PCP - General 09/24/18
--- OUTSIDE RECORDS SUMMARY | 2025-06-10 18:20 | XMS_ITS | Encounter Summary ---
Author Organization [facility] Address [address] [place] [phone] Care Team Providers Care Hoop Flaring Machine Operator Helper Name Role Phone Obtain, Unable To Primary Care Provider Unavaila ble Encounter Details Date Type Department Care Team ([facility] st Contact Info) Description 09/07/2012 Abstract [facility] Health Information Management [address] [place] [phone] [place], Primary Care [address] [place] [phone] Social History Tobacco Use Types Packs/Day Years [...] 15.25% 12/13 12:01 AM EDT Growth Chart: [facility] (Girls, 2- 20 Years) documented in this encounter Plan of Treatment Not on file documented as of this encounter Visit Diagnoses Not on filedocumented in this encounter Care Teams Hoop Flaring Machine Operator Helper Relationship Specialty Start Date End Date Obtain, Unable To PCP - General 09/24/18 documented as of this encounter
--- OUTSIDE RECORDS SUMMARY | 2025-06-10 18:20 | XMS_ITS | Clinical Summary ---
Author Organization [facility] Address [address] [place] [address] Care Team Providers Care Cupola Operator Name Role Phone Pcp, No Primary [...] patient's age to complete this topic Insurance [facility] Care Teams Cupola Operator Relationship Specialty Start Date End Date Pcp, No PCP - General General Medicine 09/11/17 Pcp, No General Medicine 09/11/17
[2025-06-17 19:14] LABS: Calprotectin, Fecal <5 mcg/g
== END 2025-06-10 13:48 | disposition home or self-care (01) ==
LOC: HO.LNP 13:47
PROVIDERS: Visit Provider Nurse Practitioner Family
DX: K59.01 Slow transit constipation (principal); R19.5 Other fecal abnormalities
CPT/HCPCS: 82705; 83993; 87177; 87209